=== PATIENT | male | born 1945 | race Two or more races ===

== ENCOUNTER 2016-07-06 19:23 | Inpatient (IN) | payer MEDICAID ==
[~2016-07-06] VITALS: Ht 167.6 cm; Wt 69.4 kg
[~2016-07-06 19:23] MED LIST: AMOXICILLIN500 MG ORAL; NORCO 5-325 TA1 EACH ORAL; PEPCID40 MG PO
[2016-07-06 20:52] VITALS: BP 148/80
[2016-07-06] MEDS ORDERED: Meclizine 25mg tab ORAL PRN (21:00)
[2016-07-06] MEDS ORDERED: LORazepam 0.5mg tab ORAL ONE (21:00)
--- NOTE | 2016-07-06 21:26 | Emergency Room Report ---
History of Present Illness General Chief Complaint: Dizziness Source: Patient Present Illness HPI 70 YO M with 4 days of dizziness, worse with moving head up/down, getting up from bed. Denies assoc chest pain, SOB, palpitations, fever/chills, cough. Has HTN, HLD. On daily ASA. Denies history of CVA or ACS. No assoc tinnitus, headache, neck pain/stiffness. Allergies: Coded Allergies: No Known Allergies (Unverified , 11/16/13) Patient History Past Medical History: HTN, other - HLD Past Surgical History: none Pertinent Family History: none Social History: Denies: alcohol use, drug use, smoking Immunizations: UTD Reviewed Nursing Documentation: PMH: Agreed, PSxH: Agreed Nursing Documentation-PMH Hx Hypertension: Yes Review of Systems All Other Systems: negative except mentioned in HPI Physical Exam Vital Signs Date Time Temp Pulse Resp B/P Pulse Ox O2 Delivery O2 Flow Rate FiO2 07/06/16 20:32 97.9 51 17 151/80 99 Room Air Sp02 EP Interpretation: reviewed, normal General Appearance: normal inspection, well appearing, no apparent distress, alert, non-toxic Head: normocephalic, atraumatic Eyes: bilateral eye EOMI, bilateral eye PERRL ENT: normal ENT inspection, hearing grossly normal, normal voice Neck: normal inspection, full range of motion, supple, no bony tend Respiratory: normal inspection, lungs clear, normal breath sounds, no respiratory distress, no retraction, no wheezing Cardiovascular #1: regular rate, rhythm, no edema Gastrointestinal: normal inspection, normal bowel sounds, non tender, soft, no guarding, no hernia Genitourinary: no CVA tenderness Musculoskeletal: normal inspection, back normal, normal range of motion, Jeanine' s Sign negative Neurologic: normal inspection, alert, oriented x3, responsive, 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 I attest that this information is true, accurate and complete to the best of my knowledge. I understand that any falsification, omission, or concealment of material fact may subject me to administrative, civil, or criminal liability. This patient warrants hospital admission for extreme of age and has a condition that cannot be treated as outpatient. Diagnostic Impression: Primary Impression: Dizziness Additional Impression: Bradycardia ER Course 70 YO M with dizziness for 4 days. VS notable for bradycardia. Afebrile. ECG shows sinus yasmine with RBBB. DDx includes BPPV however negative denny hallpike, symptoms not reproducible on exam. No cerebellar signs. No focal neuro deficits. PLAN Labs, troponin, admission EKG Diagnostic Results Rate: bradycardiac Rhythm: NSR, other - RBBB ST Segments: no acute changes ASA given to the pt in ED: No Rhythm Strip Diag. Results EP Interpretation: yes Rate: 47 Rhythm: NSR, no PVC's, no ectopy Chest X-Ray Diagnostic Results EP Interpretation: Yes Findings: no consolidation, no effusion, no pneumothorax, no acute cardiopulmonary disease Number of Views: 1 Reevaluation Time: 22:35 Last Vital Signs Date Time Temp Pulse Resp B/P Pulse Ox O2 Delivery O2 Flow Rate FiO2 07/06/16 20:52 97.9 88 17 148/80 99 Room Air Status: improved Reevaluation Impression Labs: Normal H&H. No leuks. Troponin 0. ECG sinus yasmine CXR normal Mild improvement with meclizine and lorazapem PO CT head pending Endorsed to Dr Mills at 1030pm for tele admission Disposition: ADMITTED INPATIENT Condition: Serious GARETT ESPARZA M.D. Jul 06, 2016 21:26
[2016-07-06 21:35] LABS: BASOPHILS % (AUTO) 3.1 % (0.0-2.0); EOSINOPHILS % (AUTO) 5.2 % (0.0-3.0); LYMPHOCYTES % (AUTO) 27.3 % (20.0-45.0); MEAN CORPUSCULAR HEMOGLOBIN 33.1 PG (27.0-31.0); MEAN CORPUSCULAR HGB CONC 34.6 G/DL (32.0-36.0); MEAN CORPUSCULAR VOLUME 96 FL (80-99); MEAN PLATELET VOLUME 6.7 FL (6.5-10.1); MONOCYTES % (AUTO) 8.3 % (1.0-10.0); NEUTROPHILS % (AUTO) 56.1 % (45.0-75.0); PLATELET COUNT 232 K/UL (150-450); RED BLOOD COUNT 4.14 M/UL (4.70-6.10); WHITE BLOOD COUNT 6.6 K/UL (4.8-10.8)
[2016-07-06] MEDS ORDERED: ASPIR 8181 MG ORAL (21:45)
[2016-07-06] MEDS ORDERED: GEMFIBROZIL600 MG ORAL (21:45)
[2016-07-06] MEDS ORDERED: ALLOPURINOL300 M1 ORAL (21:45)
[2016-07-06] MEDS ORDERED: AMLODIPINE BESY10 MG ORAL (21:45)
[2016-07-06 21:52] LABS: ALANINE AMINOTRANSFERASE 15 U/L (3-41); ALBUMIN/GLOBULIN RATIO 1.2 (1.0-2.7); ANION GAP 12 (5-15); ASPARTATE AMINO TRANSFERASE 19 U/L (5-40); CALCIUM 9.5 mg/dL (8.6-10.2); CARBON DIOXIDE 24 mEQ/L (20-30); CHLORIDE 104 mEQ/L (98-107); GLOMERULAR FILTRATION RATE > 60 mL/min (>60); HEMOLYSIS 8; POTASSIUM 4.1 mEQ/L (3.4-4.9); SODIUM 140 mEQ/L (135-145)
[2016-07-06 22:08] LABS: CKMB 3.8 ng/mL (< 6.7); TROPONIN I < 0.30 ng/mL (<=0.30)
[2016-07-06] MEDS ORDERED: Miralax 17gm pkt ORAL PRN (23:30)
[2016-07-06] MEDS ORDERED: Mylanta II UD 30ml ORAL PRN (23:30)
[2016-07-06] MEDS ORDERED: Morphine Sulfate 2mg/ml Inj IVP PRN (23:30)
[2016-07-06] MEDS ORDERED: Zolpidem 5mg tab ORAL PRN (23:30)
[2016-07-06] MEDS ORDERED: LORazepam Inj 2mg/ml 1ml IV PRN (23:30)
[2016-07-06 23:32] VITALS: BP 117/72
[2016-07-07] VITALS (7 sets, daily range): BP systolic 108–136; BP diastolic 66–74
[2016-07-07] MEDS ORDERED: Cefepime HCl 1 GM in D5W 55 ML IV SCH ×2 (03:00→13:00)
[2016-07-07] MEDS ORDERED: Cefepime 1gm vial ONE (03:19)
[2016-07-07] MEDS ORDERED: Vancomycin 1gm inj IVPB ONE (03:19)
[2016-07-07] MEDS ORDERED: Vancomycin 1gm in D5W 275ml IVPB SCH (04:00)
[2016-07-07 06:51] LABS: BASOPHILS % (AUTO) 2.1 % (0.0-2.0); EOSINOPHILS % (AUTO) 4.9 % (0.0-3.0); LYMPHOCYTES % (AUTO) 27.2 % (20.0-45.0); MEAN CORPUSCULAR HEMOGLOBIN 32.8 PG (27.0-31.0); MEAN CORPUSCULAR HGB CONC 35.7 G/DL (32.0-36.0); MEAN CORPUSCULAR VOLUME 92 FL (80-99); MEAN PLATELET VOLUME 7.6 FL (6.5-10.1); MONOCYTES % (AUTO) 8.4 % (1.0-10.0); NEUTROPHILS % (AUTO) 57.3 % (45.0-75.0); PLATELET COUNT 228 K/UL (150-450); RED BLOOD COUNT 4.37 M/UL (4.70-6.10); RED CELL DISTRIBUTION WIDTH 12.1 % (11.6-14.8); WHITE BLOOD COUNT 6.2 K/UL (4.8-10.8)
[2016-07-07] MEDS ORDERED: Heparin 5000 units/ml inj SUBQ SCH (09:00)
--- NOTE | 2016-07-07 10:09 | Diagnostic Imaging Report ---
Indication: Dizziness, vertigo Technique: Continuous helical CT scanning of the head was performed without intravenous contrast material. Axial and coronal 5 mm sections were generated. Radiation dose was minimized using automated exposure control Dose: Total Dose Length Product - DLP [address] Dose Index - CTDIvol(s) 70.38 mGy. Comparison: None Findings: The ventricular system is normal in size and configuration for age. There is no shift of midline structures. No abnormal extra-axial fluid collections are noted. There is no evidence of intracerebral bleeding. No other abnormal high or low density areas are noted within the brain. Intact calvarium. Visualized orbits and sinuses are unremarkable Impression: Normal CT scan of the head without contrast material. This agrees with the preliminary interpretation provided overnight by [facility]. The CT scanner at [facility] is accredited by the [employer] and the scans are performed using protocols designed to limit radiation exposure to as low as reasonably achievable to attain images of sufficient resolution adequate for diagnostic evaluation. Noncontrast
--- NOTE | 2016-07-07 13:38 | Diagnostic Imaging Report ---
Indication: PAIN Technique: One view of the chest Comparison: 03/08/2015 Findings: Lungs and pleural spaces are clear. Heart size is normal. No significant change Impression: No acute process
[2016-07-07 13:40] LABS: CHOLESTEROL/HDL RATIO 4.5 (3.3-4.4)
[2016-07-07 13:52] LABS: THYROID STIMULATING HORMONE 5.34 uIU/mL (0.300-4.500)
--- NOTE | 2016-07-07 14:16 | Cardiology Report ---
APPROVED REPORT EKG Measurement Heart [id number] Sinus bradycardia Right bundle branch block Abnormal ECG
[2016-07-07] MEDS ORDERED: Vancomycin 750mg/D5W 275ml IVPB SCH ×2 (16:00)
--- NOTE | 2016-07-07 17:01 | General Progress Note ---
Progress Note Progress Note ENT Note dictated-pt improved on meds. Does not appear to be related to ENT issues, such as inner ear infection GARETH RATLIFF Jul 07, 2016 17:01
--- NOTE | 2016-07-07 17:20 | Cardiac Electrophysiology PN ---
Subjective Subjective [id number]. Symptomatic bradycardia off GASCA or AVN marc. Transfer to [facility]. Objective Last 24 Hour Vital Signs Date Time Temp Pulse Resp B/P Pulse Ox O2 Delivery O2 Flow Rate FiO2 07/07/16 12:57 97.9 49 19 114/66 99 Room Air 07/07/16 08:52 97.7 51 20 126/72 99 Room Air 07/07/16 04:00 97.5 52 16 136/73 100 Room Air 07/07/16 02:43 97.8 54 18 110/72 99 Room Air 07/07/16 02:42 97.8 54 18 110/72 99 Room Air 07/07/16 01:25 97.8 51 18 108/70 99 Room Air 07/06/16 23:32 97.8 54 18 117/72 99 Room Air 07/06/16 20:52 97.9 58 17 148/80 99 Room Air 07/06/16 20:32 97.9 51 17 151/80 99 Room Air Intake and Output 07/06/16 07/07/16 19:00 07:00 Intake Total 330.000 ml Output Total 500 ml Balance -170.000 ml IV Total 330.000 ml Output Urine Total 500 ml Laboratory Tests Test 07/06/16 21:00 07/07/16 05:05 White Blood Count 6.6 K/UL (4.8-10.8) 6.2 K/UL (4.8-10.8) Red Blood Count 4.14 M/UL (4.70-6.10) L 4.37 M/UL (4.70-6.10) L Hemoglobin 13.7 G/DL (14.2-18.0) L 14.3 G/DL (14.2-18.0) Hematocrit 39.6 % (42.0-52.0) L 40.2 % (42.0-52.0) L Mean Corpuscular Volume 96 FL (80-99) 92 FL (80-99) Mean Corpuscular Hemoglobin 33.1 PG (27.0-31.0) H 32.8 PG (27.0-31.0) H Mean Corpuscular Hemoglobin Concent 34.6 G/DL (32.0-36.0) 35.7 G/DL (32.0-36.0) Red Cell Distribution Width 12.0 % (11.6-14.8) 12.1 % (11.6-14.8) Platelet Count 232 K/UL (150-450) 228 K/UL (150-450) Mean Platelet Volume 6.7 FL (6.5-10.1) 7.6 FL (6.5-10.1) Neutrophils (%) (Auto) 56.1 % (45.0-75.0) 57.3 % (45.0-75.0) Lymphocytes (%) (Auto) 27.3 % (20.0-45.0) 27.2 % (20.0-45.0) Monocytes (%) (Auto) 8.3 % (1.0-10.0) 8.4 % (1.0-10.0) Eosinophils (%) (Auto) 5.2 % (0.0-3.0) H 4.9 % (0.0-3.0) H Basophils (%) (Auto) 3.1 % (0.0-2.0) H 2.1 % (0.0-2.0) H Sodium Level 140 mEQ/L (135-145) Potassium Level 4.1 mEQ/L (3.4-4.9) Chloride Level 104 mEQ/L (98-107) Carbon Dioxide Level 24 mEQ/L (20-30) Anion Gap 12 (5-15) Blood Urea Nitrogen 18 mg/dL (7-23) Creatinine 1.0 mg/dL (0.7-1.2) Estimat Glomerular Filtration Rate > 60 mL/min (>60) Glucose Level 99 mg/dL (74-106) Calcium Level 9.5 mg/dL (8.6-10.2) Total Bilirubin 0.2 mg/dL (0.0-1.2) Aspartate Amino Transf (AST/SGOT) 19 U/L (5-40) Alanine Aminotransferase (ALT/SGPT) 15 U/L (3-41) Alkaline Phosphatase 92 U/L (40-129) Total Creatine Kinase 89 U/L (38-174) Creatine Kinase MB 3.8 ng/mL (< 6.7) Creatine Kinase MB Relative Index 4.2 Troponin I < 0.30 ng/mL (<=0.30) Total Protein 7.0 g/dL (6.6-8.7) Albumin 3.9 g/dL (3.5-5.2) Globulin 3.1 g/dL Albumin/Globulin Ratio 1.2 (1.0-2.7) Hemoglobin A1c 5.0 % (< 6.0) Triglycerides Level 132 mg/dL (< 150) Cholesterol Level 153 mg/dL (< 200) LDL Cholesterol 93 mg/dL (60-99) HDL Cholesterol 34 mg/dL (> 60) Cholesterol/HDL Ratio 4.5 (3.3-4.4) H Thyroid Stimulating Hormone (TSH) 5.340 uIU/mL (0.300-4.500) TREY FINCH Jul 07, 2016 17:20
--- NOTE | 2016-07-07 20:33 | Consultation ---
Consult Note Consult Note NEUROLOGY CONSULTATION: Full note dictated #[id number] 70 y/o, RH, HM with PH of HTN, dyslipidemia, and episodic vertigo off and on for the last 6 months. On 07/02/2016 started to have episodes of vertigo whenever he changed his position from lying down to sitting up or if he started to walk. At first the episodes would last for minutes at a time but today they have become less frequent and lest severe and only last for a few seconds. ON EXAM: Pulse 64/minute at rest. Normal neurologic examination except for globally diminished reflexes. Hallpike maneuver negative. However when made to sit up after the maneuver he had vertigo with few beats of pendular nystagmus which could not be reproduced. 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 Unclear if bradycardia is contributing to it. REC: W/U for other treatable causes of vertigo. Roger Cunha M.D., M.S.P.Jessica. ROGER CUNHA Jul 07, 2016 20:33
[2016-07-07] MEDS ORDERED: Mylanta II UD 30ml ORAL PRN (22:00)
[2016-07-07] MEDS ORDERED: Morphine Sulfate 2mg/ml Inj IVP PRN (22:00)
[2016-07-07] MEDS ORDERED: Miralax 17gm pkt ORAL PRN (22:00)
[2016-07-07] MEDS ORDERED: LORazepam Inj 2mg/ml 1ml IV PRN (22:00)
[2016-07-07] MEDS ORDERED: Zolpidem 5mg tab ORAL PRN (22:00)
[2016-07-07] MEDS: Cefepime HCl 1 GM in D5W 55 ML IV SCH (22:02)
[2016-07-07] MEDS: Heparin 5000 units/ml inj SUBQ SCH (22:04)
[2016-07-07 22:34] LABS: FREE T3 2.9 pg/mL (2.3-4.2)
--- NOTE | 2016-07-08 00:17 | Consultation ---
DATE OF CONSULTATION: 07/07/2016 REFERRING PHYSICIAN: Neeta Alex M.D. REASON FOR CONSULTATION: Dizziness and bradycardia. HISTORY OF PRESENT ILLNESS: The patient is a 70-year-old gentleman with history of hypertension and hyperlipidemia who was brought to the emergency room for rule out sudden dizziness. In the emergency room, the patient's EKG showed sinus bradycardia rate of 47 and complete right bundle-branch block. The patient did not have any chest pain or syncope. Denies any prior CVA. The patient was evaluated by . The patient was admitted and Cardiology consultation was obtained for further evaluation and management. REVIEW OF SYSTEM: His review of systems was negative other than what was mentioned in the history of present illness. PAST MEDICAL HISTORY: Hypertension and hyperlipidemia. FAMILY HISTORY: Noncontributory. SOCIAL HISTORY: He lives at home. Son and daughter at the bedside. Denies smoking or drinking alcohol. PHYSICAL EXAMINATION: VITAL SIGNS: Blood pressure is 114/60, pulse 49, respirations 18, and he is afebrile. NECK: Shows no JVD or carotid bruits. LUNGS: Clear. CARDIOVASCULAR: Bradycardiac S1 and S2 with no gallop or murmur. ABDOMEN: Soft. EXTREMITIES: No pitting edema. LABORATORY AND DIAGNOSTIC DATA: His 12-lead EKG shows sinus bradycardic at 47 with complete right bundle-branch block. White blood cell count 6.2, hemoglobin 14.2, hematocrit 40, and platelet count 228,000. Sodium 140, potassium 4.1, BUN of 13, creatinine 1, glucose of 99. Troponin negative. Triglyceride 132. TSH is 5.34. ASSESSMENT AND PLAN: 1. Bradycardia. The patient is not on any sinus eren or AV eren blocking agent. We will transfer back to telemetry. The patient's TSH is mildly elevated. We will check a T4 and repeat TSH again. We will get an echocardiogram for further evaluation and management. 2. Hypertension, the patient placed back on amlodipine. 3. Dyslipidemia on Lipitor. Thank very much, Dr. Alex, for allowing me to participate in the care of this patient. Please do not hesitate to contact me for any questions regarding my evaluation. Edgardo Morfin M.D. DR: Tate JOB#: [id number] CC:
--- NOTE | 2016-07-08 00:27 | Consultation ---
DATE OF CONSULTATION: 07/07/2016 HEAD AND NECK SURGERY/ENT CONSULTATION CONSULTING PHYSICIAN: Pepe Bellamy M.D. REQUESTING PHYSICIAN: Neeta Alex M.D. INDICATION FOR CONSULTATION/HISTORY OF PRESENT ILLNESS: The patient is a 70-year-old male, who was admitted yesterday with severe dizziness and bradycardia. I have saw him today for the first time. He is doing much better per his daughter and son who were present in the room. They speak Lao. He does not. MEDICATIONS: Vancomycin, ceftazidime, heparin, morphine, acetaminophen, lorazepam, aldosterone, MiraLax, dextrose, Ambien, and meclizine, which was discontinued, last given at 9 o'clock last night. He has not had any since then. He did have an EKG showing bradycardia. PHYSICAL EXAMINATION: GENERAL: The patient is a 70-year-old gentleman, 167.64 cm, 69.4 kg, and BMI 24.7 kg/m2. HEENT: Head is normocephalic. Eyes, PERRLA and EOMI. Lips, tongue, pharynx, and neck are normal. He has no teeth. Ears, positive light reflex and normal canals. ASSESSMENT: He had dizziness. I am not sure this is due to his inner ear. He does not seem to have a middle ear infection. Although, he has been treated with antibiotics, which may have knocked it out. Although, this was very quick for that to happen in less than 24 hours. He does have bradycardia that seems to be addressed and he does seem to be hydrated, which seems to be helping. PLAN: He has been doing better according to his family. He is getting up and walking around. Thank you very much for asking my opinion in care and treatment of this patient. Pepe Bellamy M.D. DR: PAPA JOB#: [id number] CC:
[2016-07-08 00:30] VITALS: BP 107/74
[2016-07-08] MEDS: Vancomycin 750 MG in D5W 275 ML IVPB SCH ×2 (04:16→16:40)
[2016-07-08 04:25] VITALS: BP 120/72
--- NOTE | 2016-07-08 05:57 | Consultation ---
DATE OF CONSULTATION: 07/07/2016 NEUROLOGY CONSULTATION REQUESTING PHYSICIAN: Neeta Alex M.D. HISTORY: Mr. Michael Ford is a 70-year-old, right-handed, gentleman, who does have a past history of hypertension, dyslipidemia, gout, and episodic vertigo off and on for the last six months or so. He was functioning relatively well until 07/02/2016 when he started to have episodes of vertigo whenever he changed his position from lying down to sitting up or he started to stand or walk. These problems became significantly more bothersome and as a result of that, he was hospitalized on 07/06/2016. When he was brought into the hospital, he was noted to be significantly bradycardic. He was given intravenous fluids, antibiotics, and benzodiazepines. He is feeling much better today. At this point in time, he feels relatively well and is free of vertigo. He denies any other neurological symptoms like weakness on one side or the other, numbness on one side or the other, problems with speech, problems with language, problems with vision, or any other neurological symptoms. PAST MEDICAL HISTORY: Significant for high blood pressure, dyslipidemia, gout, and episodic vertigo for the last six months or so. FAMILY HISTORY: Significant for high blood pressure in other family members and diabetes mellitus in mother. PERSONAL HISTORY: Home: He lives with his and two children. 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 Habits: He denies the use of alcohol, tobacco, or illicit drugs. PHYSICAL EXAMINATION: GENERAL: He is a well-developed, well-nourished, pleasant gentleman, lying in bed, in no acute distress. VITAL SIGNS: Pulse is 64 per minute and regular taken by me, blood pressure 125/74 mmHg, respirations 20 per minute, and temperature 97.8 degrees Fahrenheit. HEAD: Normocephalic and atraumatic. EENT: Examination benign NECK: No neck rigidity was observed. NEUROLOGICAL EXAMINATION: MENTAL STATUS EXAMINATION: He was alert and awake. He was oriented to person, place, and time. He was able to recall 3/3 words immediately after 1 minute and after 3 minutes. He was able to remember presidents Trump through Ned. His mathematical skills were good. His visuospatial function was preserved. SPEECH: He had no dysarthria. LANGUAGE: He had no aphasia. CRANIAL NERVE EXAMINATION: II: The visual boogie were intact on confrontation testing. III, IV & : The external ocular movements were full and the pupils 3 mm in diameter, equal, round, regular, and reactive to light. V: He had normal facial sensations and the temporales, masseters, and pterygoids functioned normally. VII: He had normal facial expressions and no facial asymmetry. VIII: He was able to hear well bilaterally and had no nystagmus. IX: The palate moved symmetrically on phonation. X: He had no hoarseness of voice. XI: The sternocleidomastoids and trapezii functioned normally. XII: The tongue was in the midline without any fasciculations or atrophy. MOTOR SYSTEM: The tone was normal in all four extremities. Examination of muscle mass revealed no focal wasting. Examination of power revealed grade 5/5 power in all muscle groups tested. SENSORY EXAMINATION: He had intact sensation to pinprick, light touch, and graphesthesia. COORDINATION: He performed well on jelovq-lj-bxod and bzqs-hu-rqyc testing. On Romberg test, he swayed, but did not fall to one side or the other. REFLEXES: 1+ and bilaterally symmetrical at the biceps, triceps, brachioradialis, and knees. 0 at both ankles. The plantar responses were flexor bilaterally. STANCE: He stood up with support. GAIT: He walked relatively well with no ataxia. Hallpike maneuver: Negative. However, when he was made to sit up following the Hallpike maneuver, he felt dizziness for the few seconds. This was associated with a few beats of nystagmus. When he was made to perform the same maneuver again that is sitting up from a lying down position, he again complained of vertigo that lasted for brief period of time, but this was not associated with any nystagmus. DIAGNOSTIC IMPRESSION: 1. Mr. Michael Ford is a 70-year-old, right-handed, gentleman, who does have a past history of hypertension, dyslipidemia, episodic vertigo, and gout, who was hospitalized on 07/06/2016 for few day episode of vertigo whenever he changed position from lying down to sitting up or if he started to stand or walk. At this time, the vertigo has improved significantly. 2. On neurological examination, at this time, his pulse rate is 64 per minute at rest. The neurological examination is essentially benign except for globally diminished deep tendon reflexes. The Hallpike maneuver is negative. However, when he was made to sit up following the Hallpike maneuver, he had vertigo and a few beats of pendular nystagmus, which could not be reproduced. 3. The CT scan of the brain without contrast is benign. 4. Laboratory data obtained thus far revealed relatively normal CBC, relatively normal chemistry panel, and elevated TSH at 5.34. 5. The patient's history and neurological examination are most compatible with labyrinthine vertigo, which may be benign positional vertigo. It is unclear if the patient's bradycardia that was seen earlier is contributing to it. It is also unclear if the patient's calcium channel marc is causing the bradycardia or not. RECOMMENDATIONS: 1. Agree with management thus far. 2. Management of bradycardia as per Dr. Morfin. 3. The patient should be worked up thoroughly for other treatable causes of vertigo with an addition to the laboratory test already done, B12 level, folate level, vitamin D level, RPR, glycohemoglobin , Westergren sedimentation rate, T3 and T4 to workup the elevated TSH. 4. Depending on how the patient fares over the next day or so, further recommendations will be given . Thank you for entrusting me with the care of Mr. Ford. I shall follow him with you. Tyler Cunha M.D., M.S.P.H. DR: Maegan JOB#: [id number] [facility]
[2016-07-08 08:00] VITALS: BP 128/75
[2016-07-08 08:22] LABS: CHOLESTEROL/HDL RATIO 4.5 (3.3-4.4)
[2016-07-08 08:23] LABS: TROPONIN I < 0.30 ng/mL (<=0.30)
[2016-07-08 08:35] LABS: THYROID STIMULATING HORMONE 2.64 uIU/mL (0.300-4.500)
[2016-07-08] MEDS: Heparin 5000 units/ml inj SUBQ SCH ×2 (09:15→21:23)
[2016-07-08] MEDS: Cefepime HCl 1 GM in D5W 55 ML IV SCH ×2 (09:16→21:20)
[2016-07-08 12:00] VITALS: BP 122/74
--- NOTE | 2016-07-08 12:43 | Neurology Progress Note ---
Interim History Interim History Interim History Mr. Ford feels emily. He has had no vertigo today. He denies any new neurologic symptoms. He is eager to go home. Review of Systems Neuro Review of Systems Benign. Objective Physical Exam Last Vital Signs Date Time Temp Pulse Resp B/P Pulse Ox O2 Delivery O2 Flow Rate FiO2 07/08/16 08:00 58 07/08/16 08:00 96.9 17 128/75 97 Room Air Laboratory Tests Test 07/07/16 21:30 07/08/16 06:30 Erythrocyte Sedimentation Rate 21 MM/HR (0-20) H Total Protein (PEP) Pending Albumin (PEP) Pending Globulin (PEP) Pending Albumin/Globulin Ratio Pending Gvfoa-9-Widxgkphn Pending Sicec-2-Uakqwuotf Pending Beta Globulins Pending Beta Gamma Globulin Pending PEP Abnormal Protein Bands Pending Protein Electrophoresis Interpret Pending Vitamin B12 Level 174 pg/mL (211-946) L Vitamin D 25-Hydroxy Pending 25-Hydroxy Vitamin D2 Pending 25-Hydroxy Vitamin D3 Pending Folate Pending Free Triiodothyronine 2.9 pg/mL (2.3-4.2) Rapid Plasma Reagin Pending Troponin I < 0.30 ng/mL (<=0.30) Pro-B-Type Natriuretic Peptide 26 pg/mL (0-125) Triglycerides Level 130 mg/dL (< 150) Cholesterol Level 165 mg/dL (< 200) LDL Cholesterol 102 mg/dL (60-99) H HDL Cholesterol 37 mg/dL (> 60) Cholesterol/HDL Ratio 4.5 (3.3-4.4) H Thyroid Stimulating Hormone (TSH) 2.640 uIU/mL (0.300-4.500) Free Thyroxine 1.16 ng/dL (0.86-1.85) Neurologic Exam Objective PHYSICAL EXAMINATION: GENERAL: He is a well-developed, well-nourished, pleasant gentleman, lying in bed, in no acute distress. HEAD: Normocephalic and atraumatic. EENT: Examination benign NECK: No neck rigidity was observed. NEUROLOGICAL EXAMINATION: MENTAL STATUS EXAMINATION: He was alert and awake. He was oriented to person, place, and time. He was able to recall 3/3 words immediately after 1 minute and after 3 minutes. He was able to remember presidents Trump through Ned. His mathematical skills were good. His visuospatial function was preserved. SPEECH: He had no dysarthria. LANGUAGE: He had no aphasia. CRANIAL NERVE EXAMINATION: II: The visual boogie were intact on confrontation testing. III, IV & : The external ocular movements were full and the pupils 3 mm in diameter, equal, round, regular, and reactive to light. V: He had normal facial sensations and the temporales, masseters, and pterygoids functioned normally. VII: He had normal facial expressions and no facial asymmetry. VIII: He was able to hear well bilaterally and had no nystagmus. IX: The palate moved symmetrically on phonation. X: He had no hoarseness of voice. XI: The sternocleidomastoids and trapezii functioned normally. XII: The tongue was in the midline without any fasciculations or atrophy. MOTOR SYSTEM: The tone was normal in all four extremities. Examination of muscle mass revealed no focal wasting. Examination of power revealed grade 5/5 power in all muscle groups tested. SENSORY EXAMINATION: He had intact sensation to pinprick, light touch, and graphesthesia. COORDINATION: He performed well on sorqsd-ss-tggz and kdkd-af-wmlp testing. REFLEXES: 1+ and bilaterally symmetrical at the biceps, triceps, brachioradialis, and knees. 0 at both ankles. The plantar responses were flexor bilaterally. STANCE & GAIT: Were not tested as he was getting his echocardiogram. Impression/Recommendations Diagnostic Impression 1. Mr. Michael Ford is a 70-year-old, right-handed, gentleman, who does have a past history of hypertension, dyslipidemia, episodic vertigo, and gout, who was hospitalized on 07/06/2016 for few day episode of vertigo whenever he changed position from lying down to sitting up or if he started to stand or walk. 2. He feels much better today and has had no vertigo. 3. The neurological examination is essentially benign except for globally diminished deep tendon reflexes. 4. The CT scan of the brain without contrast is benign. 5. Laboratory data obtained thus far revealed relatively normal CBC, relatively normal chemistry panel, an elevated TSH at 5.34 with a normal T4 but a low B 12 level. 6. The patient's history and neurological examination are most compatible with labyrinthine vertigo, which may be benign positional vertigo. It is unclear if the patient's bradycardia that was seen earlier is contributing to it. Recommendations 1. Continue present management thus far. 2. Management of bradycardia as per Dr. Morfin. 3. Vitamin B 12 - 1000 mcg SC daily x 3 days and then monthly. 4. Keep active. Roger Martinez M.D., M.S.P.H. ROGER MARTINEZ Jul 08, 2016 12:43
[2016-07-08] MEDS: Vitamin B12 1000mcg/ml Inj SUBQ SCH (14:23)
[2016-07-08 16:00] VITALS: BP 134/77
--- NOTE | 2016-07-08 16:44 | General Progress Note ---
Assessment/Plan Problem List: (1) Dizziness ICD Codes: R42 - Dizziness and giddiness SNOMED: 475242964, 167350207 (2) Bradycardia ICD Codes: R00.1 - Bradycardia, unspecified SNOMED: 45228310, 017748938 Status: progressing Assessment/Plan transfered to [facility] for symptomatic bradycardia Subjective Allergies: Coded Allergies: No Known Allergies (Unverified , 11/16/13) Subjective dizzy Objective Last 24 Hour Vital Signs Date Time Temp Pulse Resp B/P Pulse Ox O2 Delivery O2 Flow Rate FiO2 07/08/16 16:00 98.0 61 20 134/77 99 Room Air 07/08/16 12:00 57 07/08/16 12:00 97.9 59 17 122/74 99 Room Air 07/08/16 08:00 58 07/08/16 08:00 96.9 52 17 128/75 97 Room Air 07/08/16 04:25 98.5 57 21 120/72 97 Room Air 07/08/16 04:00 58 07/08/16 00:30 98.5 59 20 107/74 98 Room Air 07/08/16 00:00 52 07/07/16 20:00 97.7 57 20 122/71 97 Room Air Intake and Output 07/07/16 07/08/16 19:00 07:00 Intake Total 930.000 ml Output Total 200 ml 600 ml Balance 730.000 ml -600 ml Intake Oral 600 ml IV Total 330.000 ml Output Urine Total 200 ml 600 ml # Voids 1 Laboratory Tests 07/07/16 21:30: Erythrocyte Sedimentation Rate 21H, Total Protein (PEP) [Pending], Albumin (PEP ) [Pending], Globulin (PEP) [Pending], Albumin/Globulin Ratio [Pending], Alpha-1 -Globulins [Pending], Dbvnx-4-Fwnlvolgq [Pending], Beta Globulins [Pending], Beta Gamma Globulin [Pending], PEP Abnormal Protein Bands [Pending], Protein Electrophoresis Interpret [Pending], Vitamin B12 Level 174L, Vitamin D 25- Hydroxy [Pending], 25-Hydroxy Vitamin D2 [Pending], 25-Hydroxy Vitamin D3 [ Pending], Folate [Pending], Free Triiodothyronine 2.9, Rapid Plasma Reagin [ Pending] 07/08/16 06:30: Troponin I < 0.30, Pro-B-Type Natriuretic Peptide 26, Triglycerides Level 130, Cholesterol Level 165, LDL Cholesterol 102H, HDL Cholesterol 37, Cholesterol/ HDL Ratio 4.5H, Thyroid Stimulating Hormone (TSH) 2.640, Free Thyroxine 1.16 Height (Feet): 5 Height (Inches): 6.00 Weight (Pounds): 153 EENT: PERRL/EOMI Neck: normal alignment Respiratory/Chest: lungs clear Abdomen: non tender Neeta Alex MD Jul 08, 2016 16:44
--- NOTE | 2016-07-08 17:14 | Cardiac Electrophysiology PN ---
Assessment/Plan Assessment/Plan 1. Bradycardia. Off any sinus erne or AV eren blocking agent. Transferred to telemetry. HR better now. The patient's TSH is mildly elevated. Echocardiogram showed EF 55%. 2. Hypertension, Off BP meds stable now. 3. Dyslipidemia 4. ? Empiric IV antibiotics. WBC normal and No fever DW RN Subjective Subjective Heart rate better. No long pauses. Comfortable. Objective Last 24 Hour Vital Signs Date Time Temp Pulse Resp B/P Pulse Ox O2 Delivery O2 Flow Rate FiO2 07/08/16 16:00 98.0 61 20 134/77 99 Room Air 07/08/16 12:00 57 07/08/16 12:00 97.9 59 17 122/74 99 Room Air 07/08/16 08:00 58 07/08/16 08:00 96.9 52 17 128/75 97 Room Air 07/08/16 04:25 98.5 57 21 120/72 97 Room Air 07/08/16 04:00 58 07/08/16 00:30 98.5 59 20 107/74 98 Room Air 07/08/16 00:00 52 07/07/16 20:00 97.7 57 20 122/71 97 Room Air Intake and Output 07/07/16 07/08/16 19:00 07:00 Intake Total 930.000 ml Output Total 200 ml 600 ml Balance 730.000 ml -600 ml Intake Oral 600 ml IV Total 330.000 ml Output Urine Total 200 ml 600 ml # Voids 1 Laboratory Tests Test 07/07/16 21:30 07/08/16 06:30 Erythrocyte Sedimentation Rate 21 MM/HR (0-20) H Total Protein (PEP) Pending Albumin (PEP) Pending Globulin (PEP) Pending Albumin/Globulin Ratio Pending Tthaw-6-Lkizlsldo Pending Oqhpn-7-Fflpdstcu Pending Beta Globulins Pending Beta Gamma Globulin Pending PEP Abnormal Protein Bands Pending Protein Electrophoresis Interpret Pending Vitamin B12 Level 174 pg/mL (211-946) L Vitamin D 25-Hydroxy Pending 25-Hydroxy Vitamin D2 Pending 25-Hydroxy Vitamin D3 Pending Folate Pending Free Triiodothyronine 2.9 pg/mL (2.3-4.2) Rapid Plasma Reagin Pending Troponin I < 0.30 ng/mL (<=0.30) Pro-B-Type Natriuretic Peptide 26 pg/mL (0-125) Triglycerides Level 130 mg/dL (< 150) Cholesterol Level 165 mg/dL (< 200) LDL Cholesterol 102 mg/dL (60-99) H HDL Cholesterol 37 mg/dL (> 60) Cholesterol/HDL Ratio 4.5 (3.3-4.4) H Thyroid Stimulating Hormone (TSH) 2.640 uIU/mL (0.300-4.500) Free Thyroxine 1.16 ng/dL (0.86-1.85) Objective NECK: Shows no JVD or carotid bruits. LUNGS: Clear. CARDIOVASCULAR: Regular S1 and S2 with no gallop or murmur. ABDOMEN: Soft. EXTREMITIES: No pitting edema. TREY FINCH Jul 08, 2016 17:14
[2016-07-08 20:00] VITALS: BP 130/75
[2016-07-08] MEDS ORDERED: NS 275ml ONE (20:50)
[2016-07-08] MEDS ORDERED: D5W 275ml ONE (20:50)
[2016-07-08] MEDS ORDERED: Tubing IV Secondary IV ONE (20:50)
[2016-07-09 00:40] VITALS: BP 124/77
[2016-07-09] MEDS: Vancomycin 750 MG in D5W 275 ML IVPB SCH (04:01)
[2016-07-09 04:23] VITALS: BP 107/72
[2016-07-09 08:00] VITALS: BP 129/74
[2016-07-09] MEDS: Vitamin B12 1000mcg/ml Inj SUBQ SCH (09:01)
[2016-07-09] MEDS: Cefepime HCl 1 GM in D5W 55 ML IV SCH (09:01)
[2016-07-09] MEDS: Heparin 5000 units/ml inj SUBQ SCH ×2 (09:03→21:31)
[2016-07-09 10:21] LABS: A/G RATIO 1.3 (0.7-1.7); ABNORMAL PROTEIN BAND 1 Not Observed g/dL (Not Observed); ALBUMIN 3.5 g/dL (2.9-4.4); ALPHA-1 GLOBULIN 0.2 g/dL (0.0-0.4); ALPHA-2 GLOBULIN 0.6 g/dL (0.4-1.0); BETA GLOBULIN 1.1 g/dL (0.7-1.3); GAMMA GLOBULIN 0.9 g/dL (0.4-1.8); GLOBULIN, TOTAL 2.8 g/dL (2.2-3.9); TOTAL PROTEIN 6.3 g/dL (6.0-8.5)
[2016-07-09 12:00] VITALS: BP 119/68
--- NOTE | 2016-07-09 13:23 | General Progress Note ---
Assessment/Plan Problem List: (1) Dizziness ICD Codes: R42 - Dizziness and giddiness SNOMED: 248074538, [id number] (2) Bradycardia ICD Codes: R00.1 - Bradycardia, unspecified SNOMED: 68072925, [id number] Status: progressing Assessment/Plan transfered to [facility] for symptomatic bradycardia will discuss w dr may parker plan of care Subjective ROS Limited/Unobtainable: Yes Constitutional: Reports: no symptoms Allergies: Coded Allergies: No Known Allergies (Unverified , 11/16/13) Subjective dizzy Objective Last 24 Hour Vital Signs Date Time Temp Pulse Resp B/P Pulse Ox O2 Delivery O2 Flow Rate FiO2 07/09/16 12:00 65 07/09/16 12:00 97.7 55 119/68 Room Air 07/09/16 08:00 98.1 54 17 129/74 96 Room Air 07/09/16 08:00 63 07/09/16 06:09 62 07/09/16 04:23 98.4 68 20 107/72 98 Room Air 07/09/16 00:40 98.6 58 21 124/77 99 Room Air 07/09/16 00:00 54 07/08/16 20:00 62 07/08/16 20:00 97.6 58 20 130/75 96 Room Air 07/08/16 16:00 65 07/08/16 16:00 98.0 61 20 134/77 99 Room Air Intake and Output 07/08/16 07/09/16 19:00 07:00 Intake Total 955 ml 630.0 ml Output Total 1550 ml 600 ml Balance -595 ml 30.0 ml Intake Oral 680 ml 300 ml IV Total 275 ml 330.0 ml Output Urine Total 1550 ml 600 ml Height (Feet): 5 Height (Inches): 6.00 Weight (Pounds): 153 EENT: PERRL/EOMI Neck: supple Cardiovascular: bradycardia Respiratory/Chest: lungs clear Neeta Alex MD Jul 09, 2016 13:23
--- NOTE | 2016-07-09 13:27 | History and Physical Report ---
DATE OF ADMISSION: 07/06/2016 REASON FOR ADMISSION: Dizziness and bradycardia. HISTORY OF PRESENT ILLNESS: I obtained the history by a transfer nurse. The patient is complaining of vertigo and dizziness x1 day. The patient had a similar episode five months ago and was given some medication that helped these symptoms. The patient denies headaches. Denies double vision. Denies syncopal episode. Denies fever or chills. Denies cough. PAST MEDICAL HISTORY: History of vertigo and hypertension, history of gout, and history of GERD and hyperlipidemia. PAST SURGICAL HISTORY: Prostate surgery. MEDICATIONS: Allopurinol, amlodipine, aspirin, famotidine, and gemfibrozil. ALLERGIES: No known allergies. SOCIAL HISTORY: History of smoking and alcohol abuse, which was six years ago. No history of drug abuse. FAMILY HISTORY: Noncontributory. REVIEW OF SYSTEMS: HEENT: Denies headache. Respiratory: Denies shortness of breath. Denies cough. Cardiovascular: Denies chest pain. Gastrointestinal: Denies nausea, vomiting, or diarrhea. Denies abdominal pain. Extremities: Denies pain. Central Nervous System: Denies change in vision or speech pattern. Does have vertigo and dizziness. PHYSICAL EXAMINATION: VITAL SIGNS: Temperature 97.8 degrees, pulse is 54, and blood pressure 110/72. HEENT: PERRLA. NECK: Supple. No lymphadenopathy. CHEST: Clear to auscultation. GASTROINTESTINAL: Soft and nondistended. No organomegaly. EXTREMITIES: No edema. Moving all four extremities. NEUROLOGIC: Sensory intact to light touch. Reflexes equal on both sides. Cranial nerves II through XII intact. LABORATORY AND DIAGNOSTIC DATA: CT head apparently did not show any acute findings. WBC of 6.6, hemoglobin 13.7, and platelets 232,000. Sodium 140, potassium 4.1, BUN of 18, creatinine and glucose of 99. ASSESSMENT AND PLAN: 1. Vertigo. 2. Hypertension. I have asked Dr. Macedo, Dr. Thayer, Dr. Cunha, and Dr. Lopez to see the patient for the above-mentioned diagnoses and treatment. Neeta Alex M.D. DR: NICK JOB#: [id number] CC:
--- NOTE | 2016-07-09 14:11 | Neurology Progress Note ---
Interim History Interim History Interim History Mr. Ford feels very well. He feels more energetic. He has had no further vertigo. He denies any new neurologic symptoms. He specifically denies any weakness, numbness, visual problems, speech problems or any other neurologic symptoms. He is eager to go home. Review of Systems Neuro Review of Systems Benign. Objective Physical Exam Last Vital Signs Date Time Temp Pulse Resp B/P Pulse Ox O2 Delivery O2 Flow Rate FiO2 07/09/16 12:00 65 07/09/16 12:00 97.7 119/68 Room Air 07/09/16 08:00 17 96 Neurologic Exam Objective PHYSICAL EXAMINATION: GENERAL: He is a well-developed, well-nourished, pleasant gentleman, lying in bed, in no acute distress. HEAD: Normocephalic and atraumatic. EENT: Examination benign NECK: No neck rigidity was observed. NEUROLOGICAL EXAMINATION: MENTAL STATUS EXAMINATION: He was alert and awake. He was oriented to person, place, and time. He was able to recall 3/3 words immediately after 1 minute and after 3 minutes. He was able to remember presidents Trump through Ned. His mathematical skills were good. His visuospatial function was preserved. SPEECH: He had no dysarthria. LANGUAGE: He had no aphasia. CRANIAL NERVE EXAMINATION: II: The visual boogie were intact on confrontation testing. III, IV & : The external ocular movements were full and the pupils 3 mm in diameter, equal, round, regular, and reactive to light. V: He had normal facial sensations and the temporales, masseters, and pterygoids functioned normally. VII: He had normal facial expressions and no facial asymmetry. VIII: He was able to hear well bilaterally and had no nystagmus. IX: The palate moved symmetrically on phonation. X: He had no hoarseness of voice. XI: The sternocleidomastoids and trapezii functioned normally. XII: The tongue was in the midline without any fasciculations or atrophy. MOTOR SYSTEM: The tone was normal in all four extremities. Examination of muscle mass revealed no focal wasting. Examination of power revealed grade 5/5 power in all muscle groups tested. SENSORY EXAMINATION: He had intact sensation to pinprick, light touch, and graphesthesia. COORDINATION: He performed well on azvnsk-df-wqng and iohc-wu-zqrn testing. REFLEXES: 1+ and bilaterally symmetrical at the biceps, triceps, brachioradialis, and knees. 0 at both ankles. The plantar responses were flexor bilaterally. STANCE & GAIT: Steady and independent. Impression/Recommendations Diagnostic Impression 1. Mr. Michael Ford is a 70-year-old, right-handed, gentleman, who does have a past history of hypertension, dyslipidemia, episodic vertigo, and gout, who was hospitalized on 07/06/2016 for few day episode of vertigo whenever he changed position from lying down to sitting up or if he started to stand or walk. 2. He feels much better today and has had no vertigo. He is also more energetic. 3. The neurological examination is essentially benign except for globally diminished deep tendon reflexes. 4. The CT scan of the brain without contrast is benign. 5. Laboratory data obtained thus far revealed a relatively normal CBC, relatively normal chemistry panel, an elevated TSH at 5.34 with a normal T4 but a low B 12 level. 6. The patient's history and neurological examination are most compatible with labyrinthine vertigo, which may be benign positional vertigo. The vertigo has now resolved. 7. It is unclear if the patient's bradycardia that was seen earlier was contributing to to the vertigo or not. 8. His B 12 deficiency has been treated ans he feels more energetic today. Recommendations 1. Continue present management. 2. Management of bradycardia as per Dr. Morfin. 3. Vitamin B 12 - 1000 mcg SC daily x 3 days and then monthly. 4. Increase activity as tolerated. Tyler Martinez M.D., M.S.P.H. TYLER MARTINEZ Jul 09, 2016 14:11
--- NOTE | 2016-07-09 15:01 | Cardiac Electrophysiology PN ---
Assessment/Plan Assessment/Plan 1. Bradycardia.Resolved. Keep off any sinus eren or AV eren blocking agent. The patient's TSH is mildly elevated. Echocardiogram showed EF 55%. 2. Hypertension, Off BP meds stable now. 3. Dyslipidemia 4. ? Empiric IV antibiotics. WBC normal and No fever. ? ID consult DW Dr Alex Subjective Subjective Heart rate improved with no further pauses. Comfortable, son and daughter at bedside. Objective Last 24 Hour Vital Signs Date Time Temp Pulse Resp B/P Pulse Ox O2 Delivery O2 Flow Rate FiO2 07/09/16 12:00 65 07/09/16 12:00 97.7 55 119/68 Room Air 07/09/16 08:00 98.1 54 17 129/74 96 Room Air 07/09/16 08:00 63 07/09/16 06:09 62 07/09/16 04:23 98.4 68 20 107/72 98 Room Air 07/09/16 00:40 98.6 58 21 124/77 99 Room Air 07/09/16 00:00 54 07/08/16 20:00 62 07/08/16 20:00 97.6 58 20 130/75 96 Room Air 07/08/16 16:00 65 07/08/16 16:00 98.0 61 20 134/77 99 Room Air Intake and Output 07/08/16 07/09/16 19:00 07:00 Intake Total 955 ml 630.0 ml Output Total 1550 ml 600 ml Balance -595 ml 30.0 ml Intake Oral 680 ml 300 ml IV Total 275 ml 330.0 ml Output Urine Total 1550 ml 600 ml Objective NECK: Shows no JVD or carotid bruits. LUNGS: Clear. CARDIOVASCULAR: Regular S1 and S2 with no gallop or murmur. ABDOMEN: Soft. EXTREMITIES: No pitting edema. TREY FINCH Jul 09, 2016 15:01
[2016-07-09 16:00] VITALS: BP 108/77
--- NOTE | 2016-07-09 16:27 | Infectious Diseases Prog Note ---
Assessment/Plan Problems: (1) Dizziness Assessment & Plan: suspect BPV, VS bradycardia related , cardiology and neurology are following , recommend MRI of the brain if recurrent, and Holter monitor as an outpatient (2) Bradycardia Assessment & Plan: off eren blocking agents, cardiology is following . Assessment/Plan no evidence of sepsis or infection based on his labs and symptoms. no need for antibiotics at this point will D/C antibiotics and observe . further recommendations as per cardiology and neurology Subjective Allergies: Coded Allergies: No Known Allergies (Unverified , 11/16/13) Objective Vital Signs Last 24 Hour Vital Signs Date Time Temp Pulse Resp B/P Pulse Ox O2 Delivery O2 Flow Rate FiO2 07/09/16 16:00 97.7 60 20 108/77 98 Room Air 07/09/16 12:00 65 07/09/16 12:00 97.7 55 119/68 Room Air 07/09/16 08:00 98.1 54 17 129/74 96 Room Air 07/09/16 08:00 63 07/09/16 06:09 62 07/09/16 04:23 98.4 68 20 107/72 98 Room Air 07/09/16 00:40 98.6 58 21 124/77 99 Room Air 07/09/16 00:00 54 07/08/16 20:00 62 07/08/16 20:00 97.6 58 20 130/75 96 Room Air Height (Feet): 5 Height (Inches): 6.00 Weight (Pounds): 153 Laboratory Tests Test 07/09/16 15:20 Vancomycin Level Trough 14.6 ug/mL (5.0-12.0) H Current Medications Medications (Trade) Dose Ordered Sig/Hill Route PRN Reason Start Time Stop Time Status Last Admin Dose Admin Acetaminophen (Tylenol) 650 mg Q4H PRN ORAL fever 07/07/16 22:00 08/06/16 21:59 Al Hydroxide/Mg Hydroxide (Mylanta II) 30 ml Q6H PRN ORAL dyspepsia 07/07/16 22:00 08/06/16 21:59 Cefepime HCl 1 gm/ Dextrose 55 ml @ 110 mls/hr Q12HR IV 07/07/16 22:00 07/14/16 21:59 07/09/16 09:01 Cyanocobalamin (Vitamin B12) 1,000 mcg DAILY SUBQ 07/08/16 14:00 07/10/16 09:01 07/09/16 09:01 Dextrose (Dextrose 50%) STAT PRN IV Hypoglycemia 07/07/16 22:00 08/06/16 21:59 Heparin Sodium (Porcine) (Heparin 5000 units/ml) 5,000 units EVERY 12 HOURS SUBQ 07/07/16 22:00 08/06/16 21:59 07/09/16 09:03 Lorazepam (Ativan 2mg/ml 1ml) 0.5 mg Q4H PRN IV For Anxiety 07/07/16 22:00 07/14/16 21:59 Morphine Sulfate (Morphine Sulfate) 1 mg Q4H PRN IVP For Pain 07/07/16 22:00 07/14/16 21:59 Ondansetron HCl (Zofran) 4 mg Q6H PRN IVP Nausea & Vomiting 07/07/16 22:00 08/06/16 21:59 Polyethylene Glycol (Miralax) 17 gm HSPRN PRN ORAL Constipation 07/07/16 22:00 08/06/16 21:59 Vancomycin HCl (Vanco rx to dose) 1 ea DAILY PRN MISC Per rx protocol 07/07/16 22:00 08/06/16 21:59 Vancomycin HCl/ Dextrose (Vancomycin/D5W) 275 ml @ 183.708 mls/hr Q12H IVPB 07/08/16 04:00 07/13/16 03:59 07/09/16 04:01 Zolpidem Tartrate (Ambien) 5 mg HSPRN PRN ORAL Insomnia 07/07/16 22:00 08/06/16 21:59 Joie Noble M.D. Jul 09, 2016 16:27
[2016-07-09 20:00] VITALS: BP 113/72
--- NOTE | 2016-07-09 21:57 | Consultation ---
DATE OF CONSULTATION: INFECTIOUS DISEASE CONSULTATION CONSULTING PHYSICIAN: Joie Noble M.D. REQUESTING PHYSICIAN: Neeta Alex M.D. REASON FOR CONSULTATION: Fever and sepsis, recommendation for antibiotics therapy. HISTORY OF PRESENT ILLNESS: The patient is a 70-year-old male with past medical history significant for hypertension and hyperlipidemia, was sent to [facility] for evaluation of dizziness. The patient was found to be bradycardic in the emergency room with heart rate of 47 with complete right bundle-block branch block. He denied any fever or chills. No cough or shortness of breath. No nausea, vomiting, or diarrhea. No dysuria or hematuria. The patient was admitted to the patient monitor unit for further evaluation and management and he was evaluated by Cardiology and Neurology. His symptoms so far have improved. He does not have any fever since admission date and his white count has been normal since admission date, but he was started on IV antibiotics by the primary provider physician and I was asked for antibiotics recommendation to treat for possible sepsis. The patient feels much better today, his symptoms improved, no longer has dizziness, and no longer had bradycardia. REVIEW OF SYSTEMS: Fourteen point of systems reviewed were all negative apart from the one I mentioned above in my history and physical. PAST MEDICAL HISTORY: Significant for hypertension and hyperlipidemia. FAMILY HISTORY: Negative for recurrent infection or immunocompromised condition. SOCIAL HISTORY: The patient lives at home with family. Denied using any drugs, tobacco, or alcohol. ALLERGIES: He has no known drug allergy. MEDICATIONS: The patient was started on vancomycin and cefepime by the primary provider. For the rest of his medications, please refer to MAR. PHYSICAL EXAMINATION: VITAL SIGNS: Temperature 97.7, pulse 60, respirations 20, blood pressure 108/77, and pulse oximetry 98% on room air. GENERAL: This is a middle-aged male, Indonesian speaker, up in bed, awake, alert, not in distress. HEENT: Normocephalic and atraumatic. Pupils, both reactive to light equally. Moist oral mucosa. No exudate. NECK: Supple. No lymphadenopathy. CARDIOVASCULAR: Regular rate and rhythm. No murmur. No gallop. LUNGS: Clear bilaterally. No wheezing or rhonchi. Normal breathing efforts. ABDOMEN: Soft, nontender, and nondistended. Positive bowel sounds. No hepatosplenomegaly or ascites. EXTREMITIES: No edema. No cyanosis. LABORATORY AND DIAGNOSTIC DATA: Labs on 06/06/2016 showed white count of 6.2, hemoglobin of 14.3, and platelet count of 228,000. BUN of 18 and creatinine of 1. AST 19, ALT 15, and alkaline phosphatase of 92. Serology, his RPR screening was negative. Imaging: Chest x-ray on admission showed no acute process. Head CT scan without contrast showed no acute pathology. ASSESSMENT AND PLAN: 1. Dizziness, unclear whether central nervous system related versus cardiac. The patient has been evaluated by Neurology and Cardiology with unknown etiology, could be benign positional vertigo. I recommend MRI of the brain if symptoms are recurrent while he is in the hospital and possible Holter monitor as an outpatient to rule out arrhythmia related dizziness since he is bradycardic. 2. Bradycardia, unclear whether sinus node malfunction or atrioventricular node related degenerative changes. 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 He may benefit from Holter monitor. Continue telemetry. 3. Hypertension, well controlled. Maintain blood pressure more than 100 systolic. At this point, I do not see any source of infection or sepsis. The patient does not have fever since admission. I will stop his all antibiotics and monitor off antibiotics in the hospital. Joie Noble M.D. DR: ALEXIA JOB#: [id number] CC: TIMO
[2016-07-10 00:24] VITALS: BP 121/72
[2016-07-10 04:23] VITALS: BP 114/74
[2016-07-10 08:00] VITALS: BP 121/77
[2016-07-10] MEDS: Vitamin B12 1000mcg/ml Inj SUBQ SCH (08:13)
[2016-07-10] MEDS: Heparin 5000 units/ml inj SUBQ SCH ×2 (08:17→20:12)
--- NOTE | 2016-07-10 11:36 | General Progress Note ---
Assessment/Plan Problem List: (1) Dizziness ICD Codes: R42 - Dizziness and giddiness SNOMED: 431741093, [id number] (2) Bradycardia ICD Codes: R00.1 - Bradycardia, unspecified SNOMED: 73405448, 529068256 Status: progressing Assessment/Plan transfered to [facility] for symptomatic bradycardia will discuss w dr may parker plan of care had fever consulted id getting better Subjective ROS Limited/Unobtainable: Yes Constitutional: Reports: no symptoms Allergies: Coded Allergies: No Known Allergies (Unverified , 11/16/13) Subjective dizzy Objective Last 24 Hour Vital Signs Date Time Temp Pulse Resp B/P Pulse Ox O2 Delivery O2 Flow Rate FiO2 07/10/16 08:00 97.7 55 18 121/77 98 Room Air 07/10/16 08:00 62 07/10/16 04:23 98.3 58 19 114/74 98 Room Air 07/10/16 04:00 52 07/10/16 00:24 98.8 53 20 121/72 98 Room Air 07/10/16 00:00 48 07/09/16 20:00 55 07/09/16 20:00 97.8 57 20 113/72 97 Room Air 07/09/16 16:00 62 07/09/16 16:00 97.7 60 20 108/77 98 Room Air 07/09/16 12:00 65 07/09/16 12:00 97.7 55 119/68 Room Air Intake and Output 07/09/16 07/10/16 19:00 07:00 Intake Total 515 ml 500 ml Output Total 860 ml Balance -345 ml 500 ml Intake Oral 460 ml 500 ml IV Total 55 ml Output Urine Total 860 ml # Voids 3 4 Laboratory Tests 07/09/16 15:20: Vancomycin Level Trough 14.6H Height (Feet): 5 Height (Inches): 6.00 Weight (Pounds): 153 EENT: PERRL/EOMI Neck: supple Cardiovascular: regular rhythm Respiratory/Chest: lungs clear Abdomen: soft Neeta Alex MD Jul 10, 2016 11:36
[2016-07-10 12:00] VITALS: BP 134/77
[2016-07-10] MEDS ORDERED: NS 275ml ONE (14:40)
--- NOTE | 2016-07-10 15:02 | Infectious Diseases Prog Note ---
Assessment/Plan Problems: (1) Dizziness Assessment & Plan: suspect BPV, VS bradycardia related , cardiology and neurology are following , recommend MRI of the brain if recurrent, and Holter monitor as an outpatient (2) Bradycardia Assessment & Plan: off eren blocking agents, cardiology is following . Assessment/Plan no evidence of sepsis or infection based on his labs and symptoms. no need for antibiotics at this point will observe off antibiotics . further recommendations as per cardiology and neurology Subjective Constitutional: Denies: anorexia, chills, drenching sweats, fatigue, fever, no symptoms, other HEENT: Denies: congestion, coryza, dysphagia, hearing change, no symptoms, other, visual change Respiratory: Denies: dry cough, no symptoms, other, productive cough, shortness of breath Breasts: Denies: discharge, no symptoms, other, swelling, tenderness Cardiovascular: Denies: chest pain, dyspnea on exertion, no symptoms, other, palpitations Neurologic: Denies: confusion, headache, no symptoms, numbness, other, weakness Psychiatric: Denies: anxiety, depression, no symptoms, other Skin: Denies: no symptoms, other, rash, ulcer Endocrine: Denies: feels cold, feels warm, no symptoms, other Hematologic: Denies: bleeding, no symptoms, other, swollen lymph nodes Allergies: Coded Allergies: No Known Allergies (Unverified , 11/16/13) Objective Vital Signs Last 24 Hour Vital Signs Date Time Temp Pulse Resp B/P Pulse Ox O2 Delivery O2 Flow Rate FiO2 07/10/16 12:00 97.7 54 17 134/77 98 Room Air 07/10/16 12:00 55 07/10/16 08:00 97.7 55 18 121/77 98 Room Air 07/10/16 08:00 62 07/10/16 04:23 98.3 58 19 114/74 98 Room Air 07/10/16 04:00 52 07/10/16 00:24 98.8 53 20 121/72 98 Room Air 07/10/16 00:00 48 07/09/16 20:00 55 07/09/16 20:00 97.8 57 20 113/72 97 Room Air 07/09/16 16:00 62 07/09/16 16:00 97.7 60 20 108/77 98 Room Air Height (Feet): 5 Height (Inches): 6.00 Weight (Pounds): 153 General Appearance: WD/WN, no acute distress HEENT: normocephalic, atraumatic, mucous membranes moist, PERRL Respiratory/Chest: chest wall non-tender, lungs clear, normal breath sounds, no respiratory distress, no accessory muscle use Cardiovascular: normal peripheral pulses, normal rate, regular rhythm Abdomen: normal bowel sounds, soft, non tender, no organomegaly, non distended Extremities: no cyanosis, no clubbing Skin: no rash, no lesions, no ulcers Neurologic/Psychiatric: alert, oriented x 3, responsive Laboratory Tests Test 07/09/16 15:20 Vancomycin Level Trough 14.6 ug/mL (5.0-12.0) H Current Medications Medications (Trade) Dose Ordered Sig/Hill Route PRN Reason Start Time Stop Time Status Last Admin Dose Admin Acetaminophen (Tylenol) 650 mg Q4H PRN ORAL fever 07/07/16 22:00 08/06/16 21:59 Al Hydroxide/Mg Hydroxide (Mylanta II) 30 ml Q6H PRN ORAL dyspepsia 07/07/16 22:00 08/06/16 21:59 Dextrose (Dextrose 50%) STAT PRN IV Hypoglycemia 07/07/16 22:00 08/06/16 21:59 Heparin Sodium (Porcine) (Heparin 5000 units/ml) 5,000 units EVERY 12 HOURS SUBQ 07/07/16 22:00 08/06/16 21:59 07/10/16 08:17 Lorazepam (Ativan 2mg/ml 1ml) 0.5 mg Q4H PRN IV For Anxiety 07/07/16 22:00 07/14/16 21:59 Morphine Sulfate (Morphine Sulfate) 1 mg Q4H PRN IVP For Pain 07/07/16 22:00 07/14/16 21:59 Ondansetron HCl (Zofran) 4 mg Q6H PRN IVP Nausea & Vomiting 07/07/16 22:00 08/06/16 21:59 Polyethylene Glycol (Miralax) 17 gm HSPRN PRN ORAL Constipation 07/07/16 22:00 08/06/16 21:59 Zolpidem Tartrate (Ambien) 5 mg HSPRN PRN ORAL Insomnia 07/07/16 22:00 08/06/16 21:59 Joie Noble M.D. 4, 2017 15:02
--- NOTE | 2016-07-10 15:06 | Cardiac Electrophysiology PN ---
Assessment/Plan Assessment/Plan 1. Bradycardia.Resolved. Keep off any sinus eren or AV eren blocking agent. The patient's TSH is mildly elevated. Echocardiogram showed EF 55%. 2. Hypertension, Off BP meds stable now. 3. Dyslipidemia 4. WBC normal and No fever. ID consult noted. Abx DCed. DW Dr Alex OK to DC from cardiac perspective. Subjective Subjective Comfortable in NAD. Family at bedside. Objective Last 24 Hour Vital Signs Date Time Temp Pulse Resp B/P Pulse Ox O2 Delivery O2 Flow Rate FiO2 07/10/16 12:00 97.7 54 17 134/77 98 Room Air 07/10/16 12:00 55 07/10/16 08:00 97.7 55 18 121/77 98 Room Air 07/10/16 08:00 62 07/10/16 04:23 98.3 58 19 114/74 98 Room Air 07/10/16 04:00 52 07/10/16 00:24 98.8 53 20 121/72 98 Room Air 07/10/16 00:00 48 07/09/16 20:00 55 07/09/16 20:00 97.8 57 20 113/72 97 Room Air 07/09/16 16:00 62 07/09/16 16:00 97.7 60 20 108/77 98 Room Air Intake and Output 07/09/16 07/10/16 19:00 07:00 Intake Total 515 ml 500 ml Output Total 860 ml Balance -345 ml 500 ml Intake Oral 460 ml 500 ml IV Total 55 ml Output Urine Total 860 ml # Voids 3 4 Laboratory Tests Test 07/09/16 15:20 Vancomycin Level Trough 14.6 ug/mL (5.0-12.0) H Objective NECK: Shows no JVD or carotid bruits. LUNGS: Clear. CARDIOVASCULAR: Regular S1 and S2 with no gallop or murmur. ABDOMEN: Soft. EXTREMITIES: No pitting edema. TREY FINCH Jul 10, 2016 15:06
--- NOTE | 2016-07-10 15:09 | Neurology Progress Note ---
Interim History Interim History Interim History Mr. Ford feels very well. He feels brighter and more energetic. He has had no further vertigo. He denies any new neurologic symptoms. He specifically denies any weakness, numbness, visual problems, speech problems or any other neurologic symptoms. He is eager to go home. Review of Systems Neuro Review of Systems Benign. Objective Physical Exam Last Vital Signs Date Time Temp Pulse Resp B/P Pulse Ox O2 Delivery O2 Flow Rate FiO2 07/10/16 12:00 97.7 54 17 134/77 98 Room Air Laboratory Tests Test 07/09/16 15:20 Vancomycin Level Trough 14.6 ug/mL (5.0-12.0) H Neurologic Exam Objective PHYSICAL EXAMINATION: GENERAL: He is a well-developed, well-nourished, pleasant gentleman, lying in bed, in no acute distress. HEAD: Normocephalic and atraumatic. EENT: Examination benign NECK: No neck rigidity was observed. NEUROLOGICAL EXAMINATION: MENTAL STATUS EXAMINATION: He was alert and awake. He was oriented to person, place, and time. He was able to recall 3/3 words immediately after 1 minute and after 3 minutes. He was able to remember presidents Trump through Ned. His mathematical skills were good. His visuospatial function was preserved. SPEECH: He had no dysarthria. LANGUAGE: He had no aphasia. CRANIAL NERVE EXAMINATION: II: The visual boogie were intact on confrontation testing. III, IV & : The external ocular movements were full and the pupils 3 mm in diameter, equal, round, regular, and reactive to light. V: He had normal facial sensations and the temporales, masseters, and pterygoids functioned normally. VII: He had normal facial expressions and no facial asymmetry. VIII: He was able to hear well bilaterally and had no nystagmus. IX: The palate moved symmetrically on phonation. X: He had no hoarseness of voice. XI: The sternocleidomastoids and trapezii functioned normally. XII: The tongue was in the midline without any fasciculations or atrophy. MOTOR SYSTEM: The tone was normal in all four extremities. Examination of muscle mass revealed no focal wasting. Examination of power revealed grade 5/5 power in all muscle groups tested. SENSORY EXAMINATION: He had intact sensation to pinprick, light touch, and graphesthesia. COORDINATION: He performed well on [id number] and [id number] testing. REFLEXES: 1+ and bilaterally symmetrical at the biceps, triceps, brachioradialis, and knees. 0 at both ankles. The plantar responses were flexor bilaterally. STANCE & GAIT: Steady and independent. Impression/Recommendations Diagnostic Impression 1. Mr. Michael Ford is a 70-year-old, right-handed, gentleman, who does have a past history of hypertension, dyslipidemia, episodic vertigo, and gout, who was hospitalized on 07/06/2016 for few day episode of vertigo whenever he changed position from lying down to sitting up or if he started to stand or walk. 2. He continues to feel better and has had no vertigo. He is also more energetic. 3. The neurological examination is essentially benign except for globally diminished deep tendon reflexes. 4. The CT scan of the brain without contrast is benign. 5. Laboratory data obtained thus far revealed a relatively normal CBC, relatively normal chemistry panel, an elevated TSH at 5.34 with a normal T4 but a low B 12 level. 6. The patient's history and neurological examination are most compatible with labyrinthine vertigo, which may be benign positional vertigo. The vertigo has now resolved. 7. It is unclear if the patient's bradycardia that was seen earlier was contributing to to the vertigo or not. 8. His B 12 deficiency has been treated and he feels more energetic today. Recommendations 1. Continue present management. 2. Management of bradycardia as per Dr. Morfin. 3. Vitamin B 12 - 1000 mcg SC daily x 3 days and then monthly. 4. Increase activity as tolerated. Tyler Martinez M.D., M.S.P.H. TYLER MARTINEZ Jul 10, 2016 15:09
[2016-07-10 16:00] VITALS: BP 118/70
[2016-07-10 20:00] VITALS: BP 118/68
[2016-07-11] VITALS: BP 121/63
[2016-07-11 04:00] VITALS: BP 113/71
[2016-07-11 08:00] VITALS: BP 127/74
[2016-07-11] MEDS: Heparin 5000 units/ml inj SUBQ SCH ×2 (08:10→21:25)
[2016-07-11 12:00] VITALS: BP 128/82
--- NOTE | 2016-07-11 12:44 | General Progress Note ---
Assessment/Plan Problem List: (1) Dizziness ICD Codes: R42 - Dizziness and giddiness SNOMED: 995201358, [id number] (2) Bradycardia ICD Codes: R00.1 - Bradycardia, unspecified SNOMED: 09000832, [id number] Status: progressing Assessment/Plan intermittent fever needs clearance from id before dc for symptomatic bradycardia Subjective Constitutional: Reports: no symptoms Allergies: Coded Allergies: No Known Allergies (Unverified , 11/16/13) Subjective dizzy Objective Last 24 Hour Vital Signs Date Time Temp Pulse Resp B/P Pulse Ox O2 Delivery O2 Flow Rate FiO2 07/11/16 12:00 97.0 62 17 128/82 100 Room Air 07/11/16 08:00 63 07/11/16 08:00 97.7 58 17 127/74 100 Room Air 07/11/16 04:00 48 07/11/16 04:00 98.1 56 16 113/71 97 Room Air 07/11/16 00:00 97.7 57 16 121/63 98 Room Air 07/11/16 00:00 49 07/10/16 20:00 60 07/10/16 20:00 98.2 57 18 118/68 99 Room Air 07/10/16 16:00 97.9 60 18 118/70 99 Room Air 07/10/16 16:00 63 Intake and Output 07/10/16 07/11/16 19:00 07:00 Intake Total 680 ml 740 ml Output Total 860 ml 800 ml Balance -180 ml -60 ml Intake Oral 680 ml 740 ml Output Urine Total 860 ml 800 ml # Voids 3 2 Height (Feet): 5 Height (Inches): 6.00 Weight (Pounds): 153 EENT: PERRL/EOMI Cardiovascular: bradycardia Respiratory/Chest: lungs clear Neeta Alex MD Jul 11, 2016 12:44
--- NOTE | 2016-07-11 13:17 | Neurology Progress Note ---
Interim History Interim History Interim History Mr. Ford feels very well. He feels brighter and more energetic. He has had no further vertigo. He denies any new neurologic symptoms. He specifically denies any weakness, numbness, visual problems, speech problems or any other neurologic symptoms. He is eager to go home. Review of Systems Neuro Review of Systems Benign. Objective Physical Exam Last Vital Signs Date Time Temp Pulse Resp B/P Pulse Ox O2 Delivery O2 Flow Rate FiO2 07/11/16 12:00 97.0 62 17 128/82 100 Room Air Neurologic Exam Objective PHYSICAL EXAMINATION: GENERAL: He is a well-developed, well-nourished, pleasant gentleman, lying in bed, in no acute distress. HEAD: Normocephalic and atraumatic. EENT: Examination benign NECK: No neck rigidity was observed. NEUROLOGICAL EXAMINATION: MENTAL STATUS EXAMINATION: He was alert and awake. He was oriented to person, place, and time. He was able to recall 3/3 words immediately after 1 minute and after 3 minutes. He was able to remember presidents Trump through Ned. His mathematical skills were good. His visuospatial function was preserved. SPEECH: He had no dysarthria. LANGUAGE: He had no aphasia. CRANIAL NERVE EXAMINATION: II: The visual boogie were intact on confrontation testing. III, IV & : The external ocular movements were full and the pupils 3 mm in diameter, equal, round, regular, and reactive to light. V: He had normal facial sensations and the temporales, masseters, and pterygoids functioned normally. VII: He had normal facial expressions and no facial asymmetry. VIII: He was able to hear well bilaterally and had no nystagmus. IX: The palate moved symmetrically on phonation. X: He had no hoarseness of voice. XI: The sternocleidomastoids and trapezii functioned normally. XII: The tongue was in the midline without any fasciculations or atrophy. MOTOR SYSTEM: The tone was normal in all four extremities. Examination of muscle mass revealed no focal wasting. Examination of power revealed grade 5/5 power in all muscle groups tested. SENSORY EXAMINATION: He had intact sensation to pinprick, light touch, and graphesthesia. COORDINATION: He performed well on jrhygx-[id number] and fdzr-by-ezve testing. REFLEXES: 1+ and bilaterally symmetrical at the biceps, triceps, brachioradialis, and knees. 0 at both ankles. The plantar responses were flexor bilaterally. STANCE & GAIT: Steady and independent. Impression/Recommendations Diagnostic Impression 1. Mr. Michael Ford is a 70-year-old, right-handed, gentleman, who does have a past history of hypertension, dyslipidemia, episodic vertigo, and gout, who was hospitalized on 07/06/2016 for few day episode of vertigo whenever he changed position from lying down to sitting up or if he started to stand or walk. 2. He continues to feel better and has had no vertigo. He is also more energetic. 3. The neurological examination is essentially benign except for globally diminished deep tendon reflexes. 4. The CT scan of the brain without contrast is benign. 5. Laboratory data obtained thus far revealed a relatively normal CBC, relatively normal chemistry panel, an elevated TSH at 5.34 with a normal T4 but a low B 12 level. 6. The patient's history and neurological examination are most compatible with labyrinthine vertigo, which may be benign positional vertigo. The vertigo has now resolved. 7. It is unclear if the patient's bradycardia that was seen earlier was contributing to to the vertigo or not. 8. His B 12 deficiency has been treated and he feels more energetic today - it is unclear if the B 12 deficiency contributed to his vertigo. Recommendations 1. Continue present management. 2. Management of bradycardia as per Dr. Morfin. 3. Vitamin B 12 - 1000 mcg SC daily x 3 days and then monthly. 4. Increase activity as tolerated. Tyler Martinez M.D., M.S.P.[facility]. TYLER MARTINEZ Jul 11, 2016 13:17
[2016-07-11 16:00] VITALS: BP 112/73
--- NOTE | 2016-07-11 17:31 | Infectious Diseases Prog Note ---
Assessment/Plan Problems: (1) Dizziness Assessment & Plan: suspect BPV, VS bradycardia related , cardiology and neurology are following , recommend MRI of the brain if recurrent, and Holter monitor as an outpatient (2) Bradycardia Assessment & Plan: off eren blocking agents, cardiology is following . Assessment/Plan no evidence of sepsis or infection based on his labs and symptoms. no need for antibiotics at this point will observe off antibiotics . further recommendations as per cardiology and neurology Subjective Constitutional: Denies: anorexia, chills, drenching sweats, fatigue, fever, no symptoms, other HEENT: Denies: congestion, coryza, dysphagia, hearing change, no symptoms, other, visual change Respiratory: Denies: dry cough, no symptoms, other, productive cough, shortness of breath Breasts: Denies: discharge, no symptoms, other, swelling, tenderness Cardiovascular: Denies: chest pain, dyspnea on exertion, no symptoms, other, palpitations Gastrointestinal/Abdominal: Denies: bloating, blood in stool, constipation, diarrhea, nausea, no symptoms, other, vomiting Genitourinary: Denies: dysuria, frequency, hematuria, no symptoms, nocturia, other Neurologic: Denies: confusion, headache, no symptoms, numbness, other, weakness Psychiatric: Denies: anxiety, depression, no symptoms, other Skin: Denies: no symptoms, other, rash, ulcer Endocrine: Denies: feels cold, feels warm, no symptoms, other Allergies: Coded Allergies: No Known Allergies (Unverified , 11/16/13) Objective Vital Signs Last 24 Hour Vital Signs Date Time Temp Pulse Resp B/P Pulse Ox O2 Delivery O2 Flow Rate FiO2 07/11/16 16:00 97.3 62 18 112/73 97 Room Air 07/11/16 12:00 97.0 62 17 128/82 100 Room Air 07/11/16 12:00 55 07/11/16 08:00 63 07/11/16 08:00 97.7 58 17 127/74 100 Room Air 07/11/16 04:00 48 07/11/16 04:00 98.1 56 16 113/71 97 Room Air 07/11/16 00:00 97.7 57 16 121/63 98 Room Air 07/11/16 00:00 49 07/10/16 20:00 60 07/10/16 20:00 98.2 57 18 118/68 99 Room Air Height (Feet): 5 Height (Inches): 6.00 Weight (Pounds): 153 General Appearance: WD/WN, no acute distress HEENT: normocephalic, atraumatic, anicteric, mucous membranes moist Respiratory/Chest: chest wall non-tender, lungs clear, normal breath sounds Cardiovascular: normal peripheral pulses, normal rate, regular rhythm, no gallop/murmur, no JVD Abdomen: normal bowel sounds, soft, non tender, no organomegaly, non distended , no mass, no scars Extremities: no cyanosis, no clubbing Skin: no rash, no lesions, no ulcers Current Medications Medications (Trade) Dose Ordered Sig/Hill Route PRN Reason Start Time Stop Time Status Last Admin Dose Admin Acetaminophen (Tylenol) 650 mg Q4H PRN ORAL fever 07/07/16 22:00 08/06/16 21:59 Al Hydroxide/Mg Hydroxide (Mylanta II) 30 ml Q6H PRN ORAL dyspepsia 07/07/16 22:00 08/06/16 21:59 Dextrose (Dextrose 50%) STAT PRN IV Hypoglycemia 07/07/16 22:00 08/06/16 21:59 Heparin Sodium (Porcine) (Heparin 5000 units/ml) 5,000 units EVERY 12 HOURS SUBQ 07/07/16 22:00 08/06/16 21:59 07/11/16 08:10 Lorazepam (Ativan 2mg/ml 1ml) 0.5 mg Q4H PRN IV For Anxiety 07/07/16 22:00 07/14/16 21:59 Morphine Sulfate (Morphine Sulfate) 1 mg Q4H PRN IVP For Pain 07/07/16 22:00 07/14/16 21:59 Ondansetron HCl (Zofran) 4 mg Q6H PRN IVP Nausea & Vomiting 07/07/16 22:00 08/06/16 21:59 Polyethylene Glycol (Miralax) 17 gm HSPRN PRN ORAL Constipation 07/07/16 22:00 08/06/16 21:59 Zolpidem Tartrate (Ambien) 5 mg HSPRN PRN ORAL Insomnia 07/07/16 22:00 08/06/16 21:59 Joie Noble M.D. Jul 11, 2016 17:31
[2016-07-11 20:00] VITALS: BP 115/75
[2016-07-12] VITALS: BP 121/71
[2016-07-12 01:14] VITALS: BP 121/71
[2016-07-12 04:48] VITALS: BP 114/76
[2016-07-12 08:03] VITALS: BP 123/72
[2016-07-12 08:47] LABS: VITAMIN D 25-OH TOTAL 15 ng/mL (.)
[2016-07-12] MEDS: Heparin 5000 units/ml inj SUBQ SCH ×2 (09:00→09:04)
--- NOTE | 2016-07-12 11:22 | General Progress Note ---
Assessment/Plan Problem List: (1) Dizziness ICD Codes: R42 - Dizziness and giddiness SNOMED: 317485061, [id number] (2) Bradycardia ICD Codes: R00.1 - Bradycardia, unspecified SNOMED: 14814391, [id number] Status: progressing Assessment/Plan afebrile bradycardia fever sepsis needs clearance from id before dc Subjective ROS Limited/Unobtainable: Yes Constitutional: Reports: no symptoms Allergies: Coded Allergies: No Known Allergies (Unverified , 11/16/13) Subjective dizzy Objective Last 24 Hour Vital Signs Date Time Temp Pulse Resp B/P Pulse Ox O2 Delivery O2 Flow Rate FiO2 07/12/16 08:03 97.5 53 20 123/72 99 Room Air 07/12/16 07:20 48 07/12/16 04:48 97.2 97 20 114/76 97 Room Air 07/12/16 04:03 52 07/12/16 01:14 97.3 57 20 121/71 99 Room Air 07/12/16 00:02 48 07/12/16 00:00 97.3 57 20 121/71 99 Room Air 07/11/16 20:00 98.2 64 18 115/75 97 Room Air 07/11/16 20:00 70 07/11/16 19:49 70 07/11/16 16:00 62 07/11/16 16:00 97.3 62 18 112/73 97 Room Air 07/11/16 12:00 97.0 62 17 128/82 100 Room Air 07/11/16 12:00 55 Intake and Output 07/11/16 07/12/16 19:00 07:00 Intake Total 480 ml 400 ml Output Total 350 ml Balance 480 ml 50 ml Intake Oral 480 ml 400 ml Output Urine Total 350 ml # Voids 2 2 # Bowel Movements 3 Height (Feet): 5 Height (Inches): 6.00 Weight (Pounds): 153 EENT: PERRL/EOMI Neck: supple Cardiovascular: normal rate Respiratory/Chest: lungs clear Abdomen: soft Neeta Alex MD Jul 12, 2016 11:22
[2016-07-12 11:27] VITALS: BP 112/61
--- NOTE | 2016-07-12 12:59 | Neurology Progress Note ---
Interim History Interim History Interim History Mr. Ford feels very well. He is brighter and more energetic. He has had no further vertigo. He feels he is back to his normal self. He denies any new neurologic symptoms. He specifically denies any weakness, numbness, visual problems, speech problems or any other neurologic symptoms. He is eager to go home. Review of Systems Neuro Review of Systems Benign. Objective Physical Exam Last Vital Signs Date Time Temp Pulse Resp B/P Pulse Ox O2 Delivery O2 Flow Rate FiO2 07/12/16 11:28 51 07/12/16 11:27 97.6 20 112/61 100 Room Air Neurologic Exam Objective PHYSICAL EXAMINATION: GENERAL: He is a well-developed, well-nourished, pleasant gentleman, lying in bed, in no acute distress. HEAD: Normocephalic and atraumatic. EENT: Examination benign NECK: No neck rigidity was observed. NEUROLOGICAL EXAMINATION: MENTAL STATUS EXAMINATION: He was alert and awake. He was oriented to person, place, and time. He was able to recall 3/3 words immediately after 1 minute and after 3 minutes. He was able to remember presidents Trump through Ned. His mathematical skills were good. His visuospatial function was preserved. SPEECH: He had no dysarthria. LANGUAGE: He had no aphasia. CRANIAL NERVE EXAMINATION: II: The visual boogie were intact on confrontation testing. III, IV & : The external ocular movements were full and the pupils 3 mm in diameter, equal, round, regular, and reactive to light. V: He had normal facial sensations and the temporales, masseters, and pterygoids functioned normally. VII: He had normal facial expressions and no facial asymmetry. VIII: He was able to hear well bilaterally and had no nystagmus. IX: The palate moved symmetrically on phonation. X: He had no hoarseness of voice. XI: The sternocleidomastoids and trapezii functioned normally. XII: The tongue was in the midline without any fasciculations or atrophy. MOTOR SYSTEM: The tone was normal in all four extremities. Examination of muscle mass revealed no focal wasting. Examination of power revealed grade 5/5 power in all muscle groups tested. SENSORY EXAMINATION: He had intact sensation to pinprick, light touch, and graphesthesia. COORDINATION: He performed well on eahqkj-dq-ciku and pprg-ll-tnae testing. REFLEXES: 1+ and bilaterally symmetrical at the biceps, triceps, brachioradialis, and knees. 0 at both ankles. The plantar responses were flexor bilaterally. STANCE & GAIT: Steady and independent. Impression/Recommendations Diagnostic Impression 1. Mr. Michael Ford is a 70-year-old, right-handed, gentleman, who does have a past history of hypertension, dyslipidemia, episodic vertigo, and gout, who was hospitalized on 07/06/2016 for few day episode of vertigo whenever he changed position from lying down to sitting up or if he started to stand or walk. 2. He continues to feel very well and has had no vertigo. He is also more energetic. 3. The neurological examination is essentially benign except for globally diminished deep tendon reflexes. 4. The CT scan of the brain without contrast is benign. 5. Laboratory data obtained thus far revealed a relatively normal CBC, relatively normal chemistry panel, an elevated TSH at 5.34 with a normal T4 but a low B 12 level. 6. The patient's history and neurological examination are most compatible with labyrinthine vertigo, which may be benign positional vertigo. The vertigo has now resolved. 7. It is unclear if the patient's bradycardia that was seen earlier was contributing to to the vertigo or not. 8. His B 12 deficiency has been treated and he feels much more energetic - it is unclear if the B 12 deficiency contributed to his vertigo. Recommendations 1. Continue present management. 2. Management of bradycardia as per Dr. Morfin. 3. Vitamin B 12 - 1000 mcg SC monthly. 4. Increase activity as tolerated. Roger Martinez M.D., M.S.P.Jessica. ROGER MARTINEZ Jul 12, 2016 12:59
--- NOTE | 2016-07-12 18:04 | Infectious Diseases Prog Note ---
Assessment/Plan Problems: (1) Dizziness Assessment & Plan: suspect BPV, VS bradycardia related , cardiology and neurology are following , recommend MRI of the brain if recurrent, and Holter monitor as an outpatient (2) Bradycardia Assessment & Plan: off eren blocking agents, cardiology is following . Assessment/Plan no evidence of sepsis or infection based on his labs and symptoms. no need for antibiotics at this point, will observe off antibiotics . further recommendations as per cardiology and neurology Subjective Constitutional: Denies: anorexia, chills, drenching sweats, fatigue, fever, no symptoms, other HEENT: Denies: congestion, coryza, dysphagia, hearing change, no symptoms, other, visual change Respiratory: Denies: dry cough, no symptoms, other, productive cough, shortness of breath Breasts: Denies: discharge, no symptoms, other, swelling, tenderness Cardiovascular: Denies: chest pain, dyspnea on exertion, no symptoms, other, palpitations Gastrointestinal/Abdominal: Denies: bloating, blood in stool, constipation, diarrhea, nausea, no symptoms, other, vomiting Genitourinary: Denies: dysuria, frequency, hematuria, no symptoms, nocturia, other Neurologic: Denies: confusion, headache, no symptoms, numbness, other, weakness Psychiatric: Denies: anxiety, depression, no symptoms, other Skin: Denies: no symptoms, other, rash, ulcer Endocrine: Denies: feels cold, feels warm, no symptoms, other Hematologic: Denies: bleeding, no symptoms, other, swollen lymph nodes Allergies: Coded Allergies: No Known Allergies (Unverified , 11/16/13) Objective Vital Signs Last 24 Hour Vital Signs Date Time Temp Pulse Resp B/P Pulse Ox O2 Delivery O2 Flow Rate FiO2 07/12/16 11:28 51 07/12/16 11:27 97.6 53 20 112/61 100 Room Air 07/12/16 08:03 97.5 53 20 123/72 99 Room Air 07/12/16 07:20 48 07/12/16 04:48 97.2 97 20 114/76 97 Room Air 07/12/16 04:03 52 07/12/16 01:14 97.3 57 20 121/71 99 Room Air 07/12/16 00:02 48 07/12/16 00:00 97.3 57 20 121/71 99 Room Air 07/11/16 20:00 98.2 64 18 115/75 97 Room Air 07/11/16 20:00 70 07/11/16 19:49 70 Height (Feet): 5 Height (Inches): 6.00 Weight (Pounds): 153 General Appearance: WD/WN, no acute distress HEENT: normocephalic, atraumatic, anicteric, mucous membranes moist Respiratory/Chest: chest wall non-tender, lungs clear, no accessory muscle use , respiratory distress Cardiovascular: normal peripheral pulses, normal rate, regular rhythm, no gallop/murmur, no JVD Abdomen: normal bowel sounds, soft, non tender, no organomegaly, non distended , no mass, no scars Extremities: no cyanosis, no clubbing Skin: no rash, no lesions, no ulcers Joie Noble M.D. Jul 12, 2016 18:04
[2016-07-13] MEDS ORDERED: VITAMIN D1000 UNI1 ORAL (14:47)
[2016-07-13] MEDS ORDERED: CYANOCOBAL1000 MCG/2 SQ (14:51)
--- NOTE | 2016-07-13 14:53 | Discharge Summary ---
Discharge Summary Hospital Course Date of Admission Jul 06, 2016 at 21:46 Date of Discharge Jul 12, 2016 at 14:46 Admitting Diagnosis Dizziness,bradycardia HPI Michael Ford is a 70 year old male who was admitted on Jul 06, 2016 at 21:46 for Dizziness/Bradycardia Hospital Course dc summary dictated #[id number] Discharge Medications New Medications: Cholecalciferol (Vitamin D3)* (Vitamin D*) 1,000 Unit Tablet 1000 UNITS ORAL DAILY, #30 TAB Cyanocobalamin (Vitamin B-12) (Cyanocobalamin Injection) 1,000 Mcg/1 Ml Vial 1000 MCG SQ ONCE, #3 VIAL give once a month 1000 mcg SQ cehck level in 2-3 months Continued Medications: Allopurinol* (Allopurinol*) 300 Mg Tablet 300 MG ORAL DAILY, TAB Amlodipine Besylate* (Amlodipine Besylate*) 10 Mg Tablet 10 MG ORAL DAILY, TAB Aspirin* (Aspir 81*) 81 Mg Tablet.dr 81 MG ORAL DAILY, TAB Famotidine (Pepcid) 40 Mg Tablet 40 MG PO DAILY, #21 TAB 0 Refills Gemfibrozil (Gemfibrozil*) 600 Mg Tablet 600 MG ORAL, TAB 0 Refills Hydrocodone Bit/Acetaminophen 5-325* ([place] 5-325*) 1 Each Tablet 1 TAB ORAL Q6H PRN for For Pain, #20 TAB Discharge Condition Upon Discharge: stable Discharge Disposition Patient was discharged to Home (01) Discharge Diagnoses: Discharge Instructions Discharge Instructions Special Instructions I have been assigned to complete a D/C Summary on this account. I was not involved in the patient management Lyssa Dolan NP (Vanchtein) Jul 13, 2016 14:53
--- NOTE | 2016-07-14 04:47 | Discharge Summary 2 SIG ---
DATE OF ADMISSION: 07/06/2016 DATE OF DISCHARGE: 07/12/2016 REASON FOR ADMISSION: 70-year-old male presented with four days of dizziness, worse with moving head up and down, and when getting up from the bed. He denied chest pain, shortness of breath, palpitations and dizziness. No blackouts. No lightheadedness. He denied fever, chills, or cough. The patient denied history of CVA, CA. He has a history of hypertension and hyperlipidemia, taking aspirin and Gemfibrozil. The patient had no associated tinnitus. No ear pain. No headaches. No neck pain or stiffness. In the emergency room the patient was evaluated. EKG revealed sinus bradycardia with right bundle-branch block, heart rate of 111. Chest x-ray revealed no acute cardiopulmonary disease. Troponin was negative. Hemoglobin and hematocrit were stable. No leukocytosis. Electrolytes were stable. CT of the head was negative for any acute intracranial pathology. He was afebrile. No cerebellar signs. No focal neuro deficits. The symptoms were consistent with benign positional vertigo; however, the Mamta-Hallpike maneuver was negative. Symptoms were not reproducible on exam. The patient in the emergency department was given meclizine and lorazepam orally with mild improvement and was sent to the floor for admission. ADMITTING DIAGNOSES: 1. Dizziness. 2. Bradycardia. HOSPITAL STAY: The patient was placed on telemetry. Neurology and Cardiology followed the patient. Initially, ENT consult was requested. ENT doctor, Dr. Bellamy, concluded that his symptoms were not related to middle or inner ear problems. The patient was on antibiotics prior to arrival to ER. On exam, no evidence of ear infection. No recent upper respiratory infection. Thus ENT concluded that there were no ear issues. Neurology and Cardiology followed the patient. Echocardiogram revealed preserved ejection fraction of 50% to 55%, right ventricular systolic pressure of 7, no evidence of LVH, and no evidence of valvular disease. Outcome Analyst recommended to keep the patient off any sinus eren or AV eren blocking agents. The patient is usually on calcium channel marc, which was discontinued in the hospital due to hypotension. Lipid panel revealed borderline LDL. On gemfibrozil, educated on low fat cardiac diet, repeat lipid panel in 3 months, may need to start on low dose statin in addition to gemfibrozil. Neurologist followed the patient. Per Neurology, there was no evidence of central vertigo. No focal neuro deficits. Stable CT of the head. The patient was improving with IV hydration as well as the physical and occupational therapy. Outcome Analyst stated that the patient cardiovascular status was stable. Both splitting machine feeder and neurologist concluded that the dizziness most probably was of vasovagal origin , secondary to dehydration . Dizziness was resolved after IV fluids. Laboratory workup revealed B12 deficiency. The patient initially for three days on daily B12 supplementation, then follow up with a monthly injection of 1000 mcg subcutaneously. Also noted vitamin D deficiency. The patient needs to be on daily vitamin D supplements. ID was called to evaluate the need for antibiotics. The patient was initially on antibiotics for presumptive ear infection despite the fact that ENT ruled out any ear infection, and ID doctor confirmed no further need for antibiotics since there was no clinical evidence of infection. The patient was stable for discharge home. The patient clinically improved. No further dizziness. Vital signs stable. Still yasmine in 50s, however, asymptomatic at this time. No dizziness. No lightheadedness. No shortness of breath. No chest pain. DISCHARGE DIAGNOSES: 1. Dizziness, likely precipitated by dehydration.-resolved 2. Bradycardia. 3. Dehydration, resolved. 4. History of hypertension. 5. Hyperlipidemia. 6. B12 deficiency. 7. Vitamin D deficiency. DISCHARGE MEDICATIONS: See medication reconciliation list. Continue B12 monthly 1000 mcg as outlined. Continue vitamin D supplements. DISCHARGE INSTRUCTIONS: The patient to be discharged home. Follow up with the primary medical doctor. If symptoms recur, recommend MRI of the brain and Holter. Neeta Alex M.D. I have been assigned to dictate discharge summary on this account and I was not involved in the patient's management. Lyssa Plascenciacori N.P. DR: ADA JOB#: [id number] CC: TIMO
--- NOTE | 2016-07-27 14:19 | Cardiology Report ---
APPROVED REPORT EXAM: Two-dimensional and M-mode echocardiogram with Doppler and color Doppler. INDICATION Shortness of Breath M-Mode DIMENSIONS IVSd.8 (0.7-1.1cm)Left Atrium (MM)2.6 (1.6-4.0cm) LVDd5.0 (3.5-5.6cm)Aortic Root3.1 (2.0-3.7cm) PWd.9 (0.7-1.1cm)Aortic Cusp Exc.1.7 (1.5-2.0cm) LVDs2.8 (2.5-4.0cm) PWs1.3 cm Normal left ventricular chamber size, systolic function and wall motion. Left ventricular ejection fraction estimated to be 50-55 %. No evidence of ventricular hypertrophy. No evidence of pericardial fat or effusion. All other cardiac chamber sizes are within normal limits. Mild focal aortic valve sclerosis with adequate cusp excursion. Mildly thickened mitral valve leaflets with normal excursion. Mild mitral annulus and aortic root calcification. Pulmonic valve not well visualized. Normal tricuspid valve structure. IVC at normal size with physiologic collapse. A color flow and spectral Doppler study was performed and revealed: No aortic regurgitation. Trace mitral regurgitation. Mitral diastolic velocities suggest reduced left ventricular relaxation (Grade I). Trace tricuspid regurgitation. Tricuspid systolic velocities suggests peak right ventricular systolic pressure of 7 mmHg. Trace pulmonic regurgitation present.
== END 2016-07-12 14:46 | disposition home or self-care (01) | DRG 201 ==
LOC: EMR 21:24 → 4W 21:46 → EDBEDREQ 07-07 02:04 → EDBEDREQSVC 07-07 02:04 → EDBEDREQ 07-07 02:08 → 2E 07-07 21:21
DX: R00.1 Bradycardia, unspecified (principal); E53.8 Deficiency of other specified B group vitamins; I10 Essential (primary) hypertension; E86.0 Dehydration; I45.10 Unspecified right bundle-branch block; E78.5 Hyperlipidemia, unspecified; E55.9 Vitamin D deficiency, unspecified; R42 Dizziness and giddiness; M10.9 Gout, unspecified
CPT/HCPCS: 36415; 70450; 71010; 80053; 80061; 80202; 82306; 82550; 82553; 82607; 82746; 83036; 83880; 84165; 84439; 84443; 84481; 84484; 85025; 85651; 86592; 93005; 93306

== ENCOUNTER 2016-08-14 13:13 | Emergency (ER) | payer MEDICAID ==
[~2016-08-14] VITALS: Ht 170.2 cm; Wt 70.3 kg
[~2016-08-14 13:13] MED LIST changes: +ALLOPURINOL300 M1 ORAL; +AMLODIPINE BESY10 MG ORAL; +ASPIR 8181 MG ORAL; +CYANOCOBAL1000 MCG/2 SQ; +GEMFIBROZIL600 MG ORAL; +VITAMIN D1000 UNI1 ORAL
[2016-08-14] MEDS ORDERED: UNOBMED (13:47)
[2016-08-14 14:20] LABS: APPEARANCE,URINE CLEAR; KETONES,URINE NEGATIVE (NEGATIVE); LEUKOCYTE ESTERASE ,URINE 1+ (NEGATIVE); NITRITE,URINE NEGATIVE (NEGATIVE); PH,URINE 5 (4.5-8.0); PROTEIN,URINE NEGATIVE (NEGATIVE); UROBILINOGEN,URINE NORMAL MG/DL (0.0-1.0)
[2016-08-14 14:31] LABS: BACTERIA,URINE OCCASIONAL /HPF; RBC,URINE 0-2 /HPF (0 - 0); SQUAMOUS EPITHELIAL CELL,UR OCCASIONAL /LPF (NONE/OCC)
[2016-08-14 15:03] LABS: BASOPHILS % (AUTO) 1.7 % (0.0-2.0); EOSINOPHILS % (AUTO) 3.5 % (0.0-3.0); LYMPHOCYTES % (AUTO) 19.5 % (20.0-45.0); MEAN CORPUSCULAR HEMOGLOBIN 31.2 PG (27.0-31.0); MEAN CORPUSCULAR HGB CONC 33.4 G/DL (32.0-36.0); MEAN CORPUSCULAR VOLUME 93 FL (80-99); MEAN PLATELET VOLUME 7.3 FL (6.5-10.1); MONOCYTES % (AUTO) 8.5 % (1.0-10.0); NEUTROPHILS % (AUTO) 66.8 % (45.0-75.0); PLATELET COUNT 252 K/UL (150-450); RED BLOOD COUNT 4.83 M/UL (4.70-6.10); RED CELL DISTRIBUTION WIDTH 12.2 % (11.6-14.8); WHITE BLOOD COUNT 7.6 K/UL (4.8-10.8)
--- NOTE | 2016-08-14 15:10 | Emergency Room Report ---
History of Present Illness General Chief Complaint: Abdominal Pain Source: Patient Present Illness HPI 70-year-old male presents ED for abdominal pain. States that 3 days ago he had epigastric pain but now is having pain in the lower abdomen. Pain is sharp. 8/ 10. Nonradiating. No other aggravating or relieving factors. Notes dysuria. Denies fevers or chills. Denies flank pain. Denies nausea or vomiting. Denies chest pain or shortness of breath. Denies any other associated symptoms Allergies: Coded Allergies: No Known Allergies (Unverified , 11/16/13) Patient History Past Medical History: HTN Past Surgical History: none Pertinent Family History: none Social History: Denies: alcohol use, drug use, smoking Immunizations: UTD Reviewed Nursing Documentation: PMH: Agreed, PSxH: Agreed Nursing Documentation-PMH Past Medical History: No History, Except For Hx Hypertension: Yes Hx Cancer: No Hx Gastrointestinal Problems: No Hx Neurological Problems: No Review of Systems All Other Systems: negative except mentioned in HPI Physical Exam Vital Signs Date Time Temp Pulse Resp B/P Pulse Ox O2 Delivery O2 Flow Rate FiO2 08/14/16 13:40 98.6 61 18 148/75 98 Room Air Sp02 EP Interpretation: reviewed, normal General Appearance: no apparent distress, alert, GCS 15, non-toxic Head: normocephalic Eyes: bilateral eye PERRL, bilateral eye normal inspection ENT: normal ENT inspection Neck: normal inspection Respiratory: chest non-tender, lungs clear, normal breath sounds, speaking full sentences Cardiovascular #1: regular rate, rhythm, no edema Gastrointestinal: normal bowel sounds, soft, non-distended, no guarding, no rebound, tenderness - suprapubic Rectal: deferred Genitourinary: no CVA tenderness Musculoskeletal: normal inspection Neurologic: alert, oriented x3, responsive, motor strength/tone normal, sensory intact, speech normal Psychiatric: normal inspection Skin: normal inspection Lymphatic: normal inspection Medical Decision Making Diagnostic Impression: Primary Impression: Gastroenteritis Additional Impression: Dysuria ER Course Hospital Course 70-year-old male visits ED complaining of suprapubic pain, dysuria Differential diagnosis includes-appendicitis, cholecystitis, small bowel obstruction, gastritis, Clinical course Patient placed on stretcher. After initial history and physical I ordered labs , IV fluids, and CT scan Labs - no leukocytosis, electrolytes ok, LFTs normal, UA some bacteria CT scan shows no acute pathology, enteritis Given dysuria symptoms we will treat for UTI I feel this is a highly complex case requiring extensive working including EKG/ Rhythm strip, Xray/CT/US, Blood/urine lab work, repeat exams while in ED, and administration of strong opiates/narcotics for pain control, admission to hospital or close patient follow up. Diagnosis - gastroenteritis, dysuria Stable and discharged to home with Rx Roberto Angelo. Followup with PMD. Return to ED if symptoms recur or worsen Labs Test 08/14/16 13:40 08/14/16 14:52 Urine Color Pale yellow Urine Appearance Clear Urine pH 5 (4.5-8.0) Urine Specific [place] 1.015 (1.005-1.035) Urine Protein Negative (NEGATIVE) Urine Glucose (UA) Negative (NEGATIVE) Urine Ketones Negative (NEGATIVE) Urine Occult Blood 1+ (NEGATIVE) Urine Nitrite Negative (NEGATIVE) Urine Bilirubin Negative (NEGATIVE) Urine Urobilinogen Normal MG/DL (0.0-1.0) Urine Leukocyte Esterase 1+ (NEGATIVE) Urine RBC 0-2 /HPF (0 - 0) Urine WBC 2-4 /HPF (0 - 0) Urine Squamous Epithelial Cells Occasional /LPF Urine Bacteria Occasional /HPF (NONE) White Blood Count 7.6 K/UL (4.8-10.8) Red Blood Count 4.83 M/UL (4.70-6.10) Hemoglobin 15.1 G/DL (14.2-18.0) Hematocrit 45.2 % (42.0-52.0) Mean Corpuscular Volume 93 FL (80-99) Mean Corpuscular Hemoglobin 31.2 PG (27.0-31.0) Mean Corpuscular Hemoglobin Concent 33.4 G/DL (32.0-36.0) Red Cell Distribution Width 12.2 % (11.6-14.8) Platelet Count 252 K/UL (150-450) Mean Platelet Volume 7.3 FL (6.5-10.1) Neutrophils (%) (Auto) 66.8 % (45.0-75.0) Lymphocytes (%) (Auto) 19.5 % (20.0-45.0) Monocytes (%) (Auto) 8.5 % (1.0-10.0) Eosinophils (%) (Auto) 3.5 % (0.0-3.0) Basophils (%) (Auto) 1.7 % (0.0-2.0) Sodium Level 140 mEQ/L (135-145) Potassium Level 4.3 mEQ/L (3.4-4.9) Chloride Level 98 mEQ/L (98-107) Carbon Dioxide Level 27 mEQ/L (20-30) Anion Gap 15 (5-15) Blood Urea Nitrogen 24 mg/dL (7-23) Creatinine 1.3 mg/dL (0.7-1.2) Estimat Glomerular Filtration Rate 54.9 mL/min (>60) Glucose Level 97 mg/dL (74-106) Calcium Level 9.4 mg/dL (8.6-10.2) Total Bilirubin 0.5 mg/dL (0.0-1.2) Aspartate Amino Transf (AST/SGOT) 20 U/L (5-40) Alanine Aminotransferase (ALT/SGPT) 17 U/L (3-41) Alkaline Phosphatase 104 U/L (40-129) Troponin I < 0.30 ng/mL (<=0.30) Total Protein 7.2 g/dL (6.6-8.7) Albumin 4.5 g/dL (3.5-5.2) Globulin 2.7 g/dL Albumin/Globulin Ratio 1.6 (1.0-2.7) Lipase 40 U/L (< 60) CT/MRI/US Diagnostic Results CT/MRI/US Diagnostic Results : Imaging Test Ordered: CT A/P Impression no acute process. enteritis Last Vital Signs Date Time Temp Pulse Resp B/P Pulse Ox O2 Delivery O2 Flow Rate FiO2 08/14/16 13:40 98.6 61 18 148/75 98 Room Air Status: improved Disposition: HOME, SELF-CARE Condition: Serious Scripts Cephalexin* (KEFLEX*) 500 Mg Capsule 500 MG ORAL Q6H, #28 CAP 0 Refills Prov: DAKOTA JOHNSON M.D. 08/14/16 Dicyclomine Hcl* (BENTYL*) 10 Mg Capsule 10 MG ORAL FOUR TIMES A DAY, #20 CAP Prov: DAKOTA JOHNSON M.D. 08/14/16 DAKOTA JOHNSON M.D. Aug 14, 2016 15:10
[2016-08-14 15:19] VITALS: BP 131/71
[2016-08-14 15:22] LABS: ALBUMIN/GLOBULIN RATIO 1.6 (1.0-2.7); CALCIUM 9.4 mg/dL (8.6-10.2); CREATININE 1.3 mg/dL (0.7-1.2); GLOMERULAR FILTRATION RATE 54.9 mL/min (>60); POTASSIUM 4.3 mEQ/L (3.4-4.9); TOTAL PROTEIN 7.2 g/dL (6.6-8.7); TROPONIN I < 0.30 ng/mL (<=0.30)
[2016-08-14] MEDS ORDERED: BENTYL10 MG ORAL (16:28)
[2016-08-14] MEDS ORDERED: KEFLEX500 MG ORAL (16:28)
[2016-08-14 16:37] VITALS: BP 139/63
--- NOTE | 2016-08-15 09:13 | Diagnostic Imaging Report ---
Indication: ABD PAIN Technique: CT scan of the abdomen and pelvis was performed from the diaphragms to the symphysis pubis with intravenous contrast material only per specific request of the ordering physician.. 5 mm sections were generated. Axial, coronal, and sagittal images are presented. Dose: Total Dose Length Product - DLP [address] Dose Index - CTDIvol(s) 17.05 mGy. Comparison: None Findings: The liver is normal. The gallbladder is unremarkable. The spleen is normal. Pancreas is unremarkable. Adrenal glands are normal. Aorta is normal in caliber. There is calcification of the aorta. Retroperitoneum is free of adenopathy. There is a less than 1 cm low-density lesion in the lower pole the right kidney. Decreased cortex is noted the left kidney which is small. The left renal collecting system and left ureter appear dilated. There is mild dilatation of the right ureter and right renal collecting system as well. The appendix is normal. Fluid-filled loops of small bowel are noted throughout the abdomen. This is nonobstructive. The bladder wall is thickened. The prostate is enlarged. There are some degenerative changes in the spine. Impression: Bladder wall thickening. This may be on the basis of chronic outlet obstruction. Mildly enlarged prostate. Left renal atrophy with chronic hydronephrosis and hydroureter. Mild right hydroureter and hydronephrosis. Small right renal cyst. Atherosclerotic change. Nonspecific fluid-filled loops of small bowel. This appears nonobstructive. Enteritis is a possibility. Normal appendix. This agrees with preliminary reading. The CT scanner at [facility] is accredited by the [place] [employer] [employer] and the scans are performed using protocols designed to limit radiation exposure to as low as reasonably achievable to attain images of sufficient resolution adequate for diagnostic evaluation.
== END 2016-08-14 16:43 | disposition home or self-care (01) ==
LOC: EMR 13:50
DX: K52.9 Noninfective gastroenteritis and colitis, unspecified (principal); R30.0 Dysuria; I10 Essential (primary) hypertension
CPT/HCPCS: 36415; 74177; 80053; 81003; 83690; 84484; 85025; 96360; 99284; Q9967

== ENCOUNTER 2017-02-10 13:57 | Emergency (ER) | payer MEDICAID ==
[~2017-02-10] VITALS: Ht 167.6 cm; Wt 69.4 kg
[~2017-02-10 13:57] MED LIST changes: +BENTYL10 MG ORAL; +KEFLEX500 MG ORAL; +UNOBMED
--- NOTE | 2017-02-10 15:05 | Emergency Room Report ---
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 work Not on any other AC Denies falls on abdomen/pelvis Distant prostate surgery Denies nausea/vomiting, fever/chills Allergies: Coded Allergies: No Known Allergies (Unverified , 11/16/13) Patient History Past Medical History: HTN, other - prostate surgery Past Surgical History: none Pertinent Family History: none Social History: Denies: smoking, alcohol use, drug use Immunizations: UTD Reviewed Nursing Documentation: PMH: Agreed, PSxH: Agreed Nursing Documentation-PMH Past Medical History: No History, Except For Hx Hypertension: Yes Hx Cancer: No Hx Gastrointestinal Problems: No Hx Neurological Problems: No Review of Systems All Other Systems: negative except mentioned in HPI Physical Exam Vital Signs Date Time Temp Pulse Resp B/P (MAP) Pulse Ox O2 Delivery O2 Flow Rate FiO2 02/10/17 14:04 98.1 66 14 144/69 97 Room Air Sp02 EP Interpretation: reviewed, normal General Appearance: normal inspection, well appearing, no apparent distress, alert, GCS 15, non-toxic Head: normocephalic, atraumatic Eyes: bilateral eye PERRL, bilateral eye EOMI ENT: normal ENT inspection, hearing grossly normal, normal voice Neck: normal inspection, full range of motion, supple, no bony tend Respiratory: normal inspection, lungs clear, normal breath sounds, no respiratory distress, no retraction, no wheezing Cardiovascular #1: regular rate, rhythm, no edema Gastrointestinal: normal inspection, normal bowel sounds, soft, no guarding, no hernia, other - +suprapubic ttp. No rebound, guarding Genitourinary: no CVA tenderness, other - gross hematuria in urine collecting bottle. Musculoskeletal: normal inspection, back normal, normal range of motion, Jeanine' s Sign negative Neurologic: normal inspection, alert, oriented x3, responsive, ventilating engineer III-XII nml as tested, motor strength/tone normal, speech normal Psychiatric: normal inspection, judgement/insight normal, mood/affect normal Skin: normal inspection, normal color, no rash Medical Decision Making Diagnostic Impression: Primary Impression: Gross hematuria Additional Impressions: Abdominal pain Qualified Codes: R10.9 - Unspecified abdominal pain UTI (urinary tract infection) Qualified Codes: N30.01 - Acute cystitis with hematuria ER Course H&H stable. INR, platelets normal. CT with bladder wall thickening, bilateral mild hydro Bladder full on CT After CT, bedside sono shows full bladder but patient emptied bladder, mostly urine, some blood clots Unlikely urinary obstruction given able to urinate without pain, empty bladder Bladder wall thickening and UA with UTI ASA might also be contributing to hematuria Rx Macrobid Advised to followup with Urology outpatient Last Vital Signs Date Time Temp Pulse Resp B/P (MAP) Pulse Ox O2 Delivery O2 Flow Rate FiO2 02/10/17 14:04 98.1 66 14 144/69 97 Room Air Status: improved Disposition: HOME, SELF-CARE Scripts Nitrofurantoin Monohyd/M-Cryst* (MACROBID 100 MG*) 100 Mg Capsule 100 MG ORAL EVERY 12 HOURS for 7 Days, #14 CAP Prov: DYLON ESPARZA M.D. 02/10/17 Referrals: NON PHYSICIAN (PCP) DYLON ESPARZA M.D. Feb 10, 2017 15:05
[2017-02-10 15:06] LABS: BASOPHILS % (AUTO) 1.6 % (0.0-2.0); EOSINOPHILS % (AUTO) 1.3 % (0.0-3.0); LYMPHOCYTES % (AUTO) 24.4 % (20.0-45.0); MEAN CORPUSCULAR HEMOGLOBIN 31.6 PG (27.0-31.0); MEAN CORPUSCULAR HGB CONC 33.4 G/DL (32.0-36.0); MEAN CORPUSCULAR VOLUME 95 FL (80-99); MEAN PLATELET VOLUME 7.6 FL (6.5-10.1); MONOCYTES % (AUTO) 8.3 % (1.0-10.0); NEUTROPHILS % (AUTO) 64.4 % (45.0-75.0); PLATELET COUNT 255 K/UL (150-450); RED BLOOD COUNT 4.55 M/UL (4.70-6.10); RED CELL DISTRIBUTION WIDTH 11.9 % (11.6-14.8); WHITE BLOOD COUNT 6.3 K/UL (4.8-10.8)
[2017-02-10 15:06] LABS: APPEARANCE,URINE TURBID; KETONES,URINE 1+ (NEGATIVE); LEUKOCYTE ESTERASE ,URINE 1+ (NEGATIVE); NITRITE,URINE NEGATIVE (NEGATIVE); PH,URINE 6.5 (4.5-8.0); PROTEIN,URINE 4+ (NEGATIVE); UROBILINOGEN,URINE NORMAL MG/DL (0.0-1.0)
[2017-02-10 15:19] LABS: ALANINE AMINOTRANSFERASE 13 U/L (3-41); ALBUMIN/GLOBULIN RATIO 1.3 (1.0-2.7); ANION GAP 11 (5-15); ASPARTATE AMINO TRANSFERASE 19 U/L (5-40); CALCIUM 9.6 mg/dL (8.6-10.2); CARBON DIOXIDE 26 mEQ/L (20-30); CHLORIDE 102 mEQ/L (98-107); CREATININE 1.2 mg/dL (0.7-1.2); GLOMERULAR FILTRATION RATE > 60 mL/min (>60); HEMOLYSIS 6; LIPASE 47 U/L (< 60); POTASSIUM 3.6 mEQ/L (3.4-4.9); SODIUM 139 mEQ/L (135-145); TOTAL PROTEIN 7.3 g/dL (6.6-8.7)
[2017-02-10 15:20] VITALS: BP 111/59
[2017-02-10 15:34] LABS: BACTERIA,URINE MODERATE /HPF; RBC,URINE TNTC /HPF (0 - 0)
--- NOTE | 2017-02-10 16:50 | Diagnostic Imaging Report ---
Indication: PAIN Technique: Precontrast spiral acquisitions obtained through the abdomen and pelvis. IV administration nonionic contrast. Multiphasic spiral acquisitions obtained through the abdomen and pelvis. Oral contrast, per urinary protocol Multiplanar reconstructions were generated. Total dose length product 3108 and 774 mGycm. CTDIvol(s) 16, 15, 16, 16, 15 mGy. Radiation dose was minimized using automated exposure control Comparison: 08/14/2016 Findings: Precontrast images demonstrate serpiginous areas of high attenuation within the bladder lumen posteriorly. These appear as filling defects on the delayed images with the bladder filled with contrast. This was not evident on the prior study. There is mild bladder wall thickening. There is bilateral distal hydroureter, with ureteral dilatation extending to ureterovesical junctions bilaterally. More proximally, the ureters are nondilated. The right renal collecting system is mildly hydronephrotic. The left renal collecting system is likewise mildly hydronephrotic. The left kidney is also somewhat atrophic. There is some perinephric fat stranding on the left. The kidneys and collecting systems are similar in appearance to the previous study. The distal ureteral dilatation is also evident on the previous study, although somewhat less striking. The prostate is enlarged, measuring 4.5 cm transverse by 3.7 cm AP by 4.3 cm craniocaudad. It indents the bladder floor. There is questionably a small TURP defect. The bladder floor is somewhat irregular. There is somewhat delayed opacification of the left renal collecting system and ureter as compared to the right. The right kidney again demonstrates a subcentimeter lower pole low-attenuation lesion which is too small to characterize. No retroperitoneal or pelvic mass or adenopathy demonstrated. The seminal vesicles appear unremarkable. There is no evidence of any perivesical pelvic fluid. No significant perivesical fat stranding demonstrated. No evidence of extravasation of contrast from the bladder is seen on the delayed images. On the delayed images, no significant collecting system filling defects are demonstrated. There is suggestion of a duplex left renal collecting system. The renal arteries are normal in caliber The liver, gallbladder, bile ducts, pancreas, spleen, adrenals are all unremarkable. No evidence of diverticulosis or diverticulitis. Normal appendix. Normal caliber small bowel. No free or loculated intraperitoneal air or fluid is evident. Distal esophagus, stomach, duodenum are unremarkable. The included lung bases are clear. The bones are unremarkable. Impression: Filling defects within the bladder. These may represent either blood clots, given stated clinical history hematuria, or exophytic tumor. Further evaluation with cystoscopy should be considered. Mild bladder wall thickening, also previously described, may be on the basis of chronic bladder outlet obstruction Delayed renal excretion, bilateral mild hydronephrosis and distal hydroureter, but no evidence of definite anatomic obstruction. Findings may be on the basis of chronic bladder obstruction as well Enlarged somewhat irregular prostate, with indentation of the floor of the bladder. Also evident on previous study of 08/14/2016. Equivocal TURP defect that correlate with surgical history Atrophic left kidney, also previously demonstrated, etiology uncertain. No evidence of unilateral renal artery stenosis demonstrated Asymmetric delay of left renal collecting system filling, significance uncertain, possibly reflecting chronic left renal disease. No significant extraurinary abnormality demonstrated. Note that previously described small bowel distention, fluid, and wall thickening are not evident currently. The CT scanner at [facility] is accredited by the [employer] and the scans are performed using protocols designed to limit radiati -- on exposure to as low as reasonably achievable to attain images of sufficient resolution adequate for diagnostic evaluation.
[2017-02-10] MEDS ORDERED: NITROFURANTOIN100 M2 ORAL (18:15)
[2017-02-10 18:29] VITALS: BP 116/60
== END 2017-02-10 18:33 | disposition home or self-care (01) ==
LOC: EMR 14:39
DX: R31.0 Gross hematuria (principal); R10.9 Unspecified abdominal pain; N39.0 Urinary tract infection, site not specified; I10 Essential (primary) hypertension; N40.0 Benign prostatic hyperplasia without lower urinary tract symptoms; N13.30 Unspecified hydronephrosis; N26.1 Atrophy of kidney (terminal)
CPT/HCPCS: 36415; 74178; 80053; 81003; 83690; 85025; 85610; 85730; 86850; 86900; 86901; 87086; 99284; Q9967

== ENCOUNTER 2017-03-10 17:55 | Emergency (ER) | payer MEDICAID ==
[~2017-03-10] VITALS: Ht 167.6 cm; Wt 70.3 kg
[~2017-03-10 17:55] MED LIST changes: +NITROFURANTOIN100 M2 ORAL
[2017-03-10 18:24] VITALS: BP 138/72
[2017-03-10 18:57] LABS: APPEARANCE,URINE CLEAR; KETONES,URINE NEGATIVE (NEGATIVE); LEUKOCYTE ESTERASE ,URINE NEGATIVE (NEGATIVE); NITRITE,URINE NEGATIVE (NEGATIVE); PH,URINE 5 (4.5-8.0); PROTEIN,URINE NEGATIVE (NEGATIVE); UROBILINOGEN,URINE NORMAL MG/DL (0.0-1.0)
[2017-03-10 19:37] LABS: BASOPHILS % (AUTO) 1.8 % (0.0-2.0); EOSINOPHILS % (AUTO) 3.2 % (0.0-3.0); LYMPHOCYTES % (AUTO) 30.5 % (20.0-45.0); MEAN CORPUSCULAR HEMOGLOBIN 31.5 PG (27.0-31.0); MEAN CORPUSCULAR HGB CONC 33.1 G/DL (32.0-36.0); MEAN CORPUSCULAR VOLUME 95 FL (80-99); MEAN PLATELET VOLUME 6.7 FL (6.5-10.1); MONOCYTES % (AUTO) 16.1 % (1.0-10.0); NEUTROPHILS % (AUTO) 48.5 % (45.0-75.0); PLATELET COUNT 188 K/UL (150-450); RED BLOOD COUNT 4.18 M/UL (4.70-6.10); RED CELL DISTRIBUTION WIDTH 12.2 % (11.6-14.8); WHITE BLOOD COUNT 3.8 K/UL (4.8-10.8)
[2017-03-10 19:38] LABS: TROPONIN I < 0.30 ng/mL (<=0.30)
[2017-03-10 19:41] LABS: ALANINE AMINOTRANSFERASE 19 U/L (3-41); ALBUMIN/GLOBULIN RATIO 1.3 (1.0-2.7); ANION GAP 10 (5-15); ASPARTATE AMINO TRANSFERASE 22 U/L (5-40); CALCIUM 8.8 mg/dL (8.6-10.2); CARBON DIOXIDE 27 mEQ/L (20-30); CHLORIDE 102 mEQ/L (98-107); CREATININE 0.9 mg/dL (0.7-1.2); GLOMERULAR FILTRATION RATE > 60 mL/min (>60); HEMOLYSIS 0; LIPASE 32 U/L (< 60); POTASSIUM 3.9 mEQ/L (3.4-4.9); SODIUM 139 mEQ/L (135-145); TOTAL PROTEIN 6.8 g/dL (6.6-8.7)
[2017-03-10] MEDS ORDERED: Morphine Sulfate 4mg/ml Inj IVP ONE (20:00)
[2017-03-10 20:20] LABS: INR 1.1 (0.9-1.1); PROTHROMBIN TIME 11.4 SEC (9.30-11.50)
[2017-03-10 20:54] VITALS: BP 132/74
[2017-03-10] MEDS ORDERED: ZOFRAN4 M3 ORAL (20:58)
[2017-03-10] MEDS ORDERED: TYLENOL EXTRA500 MG ORAL (20:58)
[2017-03-10] MEDS ORDERED: Metoclopramide 10mg/2ml Inj IVP ONE (21:15)
--- NOTE | 2017-03-10 21:34 | Emergency Room Report ---
History of Present Illness General Chief Complaint: Abdominal Pain Source: Patient (MARIANNA SHAFFER) Present Illness HPI The patient is a 71-year-old male with a history of hypertension presenting for abdominal pain, nausea, vomiting, and diarrhea for the past 3 days. he denies any known sick contacts recent travel. Abdominal pain described as a 9/10 dull ache to the entire abdomen. No known provoking relieving factors. He states that he has had 10 episodes of diarrhea yesterday. Described as light brown to yellow. He denies any other symptoms including fever, chills, melena, hematochezia, hematemesis, chest pain, shortness of breath (MARIANNA SHAFFER) Allergies: Coded Allergies: No Known Allergies (Unverified , 11/16/13) Patient History Past Medical History: see triage record Pertinent Family History: none Reviewed Nursing Documentation: PMH: Agreed, PSxH: Agreed (MARIANNA HSAFFER) Nursing Documentation-PMH Past Medical History: No History, Except For Hx Hypertension: Yes Hx Cancer: No Hx Gastrointestinal Problems: No Hx Neurological Problems: No (MARIANNA SHAFFER) Review of Systems All Other Systems: negative except mentioned in HPI (MARIANNA SHAFFER) Physical Exam Vital Signs Date Time Temp Pulse Resp B/P (MAP) Pulse Ox O2 Delivery O2 Flow Rate FiO2 03/10/17 18:05 97.5 58 14 145/71 99 Room Air Sp02 EP Interpretation: reviewed, normal General Appearance: no apparent distress, alert, GCS 15, non-toxic Head: normocephalic, atraumatic Eyes: bilateral eye normal inspection, bilateral eye PERRL ENT: hearing grossly normal, normal pharynx, no angioedema, normal voice Neck: full range of motion, supple/symm/no masses Respiratory: chest non-tender, lungs clear, normal breath sounds, speaking full sentences Gastrointestinal: normal bowel sounds, soft, non-distended, no guarding, no rebound, tenderness - diffuse Genitourinary: normal inspection, no CVA tenderness Musculoskeletal: back normal, gait/station normal, normal range of motion, non- tender, calf tenderness Neurologic: alert, oriented x3, responsive, motor strength/tone normal, sensory intact, speech normal Psychiatric: judgement/insight normal, memory normal, mood/affect normal, no suicidal/homicidal ideation Skin: normal color, no rash, warm/dry, well hydrated (MARIANNA SHAFFER) Medical Decision Making ND Attestation Dr. Ybarra is my supervising physician. Patient management was discussed with my supervising physician (MARIANNA SHAFFER) Medicare Attestation The history of Michael Ford has been reviewed and management options for him have been examined and discussed by Bubba Ybarra. I have personally examined and interviewed the patient. (BUBBA YBARRA M.D.) Diagnostic Impression: Primary Impression: Gastroenteritis ER Course The patient is a 71-year-old male with a history of hypertension presenting for abdominal pain, nausea, vomiting, and diarrhea Differential diagnoses considered include but not limited to gastritis, pancreatitis, appendicitis, Gastroenteritis, pancreatitis, among others PE: afebrile. NAD Abdomen is soft. Normal bowel sounds. There is diffuse tenderness to palpation. Nondistended No CVA tenderness All labs are unremarkable. CT scan is consistent with colitis. The patient is given morphine for pain which has significantly decreased. He has been given both Zofran and Reglan for nausea and states that he is feeling much better. He was discharged home with prescription for Zofran and Tylenol. ER precautions are given Laboratory Tests Test 03/10/17 18:35 03/10/17 18:54 03/10/17 19:58 Urine Color Pale yellow Urine Appearance Clear Urine pH 5 (4.5-8.0) Urine Specific [place] 1.005 (1.005-1.035) Urine Protein Negative (NEGATIVE) Urine Glucose (UA) Negative (NEGATIVE) Urine Ketones Negative (NEGATIVE) Urine Occult Blood Negative (NEGATIVE) Urine Nitrite Negative (NEGATIVE) Urine Bilirubin Negative (NEGATIVE) Urine Urobilinogen Normal MG/DL (0.0-1.0) Urine Leukocyte Esterase Negative (NEGATIVE) White Blood Count 3.8 K/UL (4.8-10.8) L Red Blood Count 4.18 M/UL (4.70-6.10) L Hemoglobin 13.2 G/DL (14.2-18.0) L Hematocrit 39.8 % (42.0-52.0) L Mean Corpuscular Volume 95 FL (80-99) Mean Corpuscular Hemoglobin 31.5 PG (27.0-31.0) H Mean Corpuscular Hemoglobin Concent 33.1 G/DL (32.0-36.0) Red Cell Distribution Width 12.2 % (11.6-14.8) Platelet Count 188 K/UL (150-450) Mean Platelet Volume 6.7 FL (6.5-10.1) Neutrophils (%) (Auto) 48.5 % (45.0-75.0) Lymphocytes (%) (Auto) 30.5 % (20.0-45.0) Monocytes (%) (Auto) 16.1 % (1.0-10.0) H Eosinophils (%) (Auto) 3.2 % (0.0-3.0) H Basophils (%) (Auto) 1.8 % (0.0-2.0) Sodium Level 139 mEQ/L (135-145) Potassium Level 3.9 mEQ/L (3.4-4.9) Chloride Level 102 mEQ/L (98-107) Carbon Dioxide Level 27 mEQ/L (20-30) Anion Gap 10 (5-15) Blood Urea Nitrogen 9 mg/dL (7-23) Creatinine 0.9 mg/dL (0.7-1.2) Estimate Glomerular Filtration Rate > 60 mL/min (>60) Glucose Level 96 mg/dL (74-106) Calcium Level 8.8 mg/dL (8.6-10.2) Total Bilirubin 0.4 mg/dL (0.0-1.2) Aspartate Amino Transferase (AST) 22 U/L (5-40) Alanine Aminotransferase (ALT) 19 U/L (3-41) Alkaline Phosphatase 87 U/L (40-129) Troponin I < 0.30 ng/mL (<=0.30) Total Protein 6.8 g/dL (6.6-8.7) Albumin 3.9 g/dL (3.5-5.2) Globulin 2.9 g/dL Albumin/Globulin Ratio 1.3 (1.0-2.7) Lipase 32 U/L (< 60) Prothrombin Time 11.4 SEC (9.30-11.50) Prothrombin Time INR 1.1 (0.9-1.1) PTT 30 SEC (23-33) Lab Results Impression unremarkable (MARIANNA SHAFFERSy) CT/MRI/US Diagnostic Results CT/MRI/US Diagnostic Results : Imaging Test Ordered: CT Abd/Pelvis Impression chronic hydronephrosis. Colitis (MARIANNA SHAFFER) Last Vital Signs Date Time Temp Pulse Resp B/P (MAP) Pulse Ox O2 Delivery O2 Flow Rate FiO2 03/10/17 18:24 97.8 82 16 138/72 99 Room Air Status: improved (MARIANNA SHAFFER) Disposition: HOME, SELF-CARE Condition: Improved Scripts Acetaminophen* (TYLENOL EXTRA STRENGTH*) 500 Mg Tablet 500 MG ORAL Q8H Y for Prn Headache/Temp > 101, #30 TAB 0 Refills Prov: MARIANNA SHAFFER 03/10/17 Ondansetron* (ZOFRAN*) 4 Mg Tablet 4 MG ORAL Q6H Y for Nausea & Vomiting, #20 TAB Prov: MARIANNA SHAFFER 03/10/17 Referrals: NON PHYSICIAN (PCP) Patient Instructions: Viral Gastroenteritis, Adult, Abdominal Pain, Adult Additional Instructions: I discussed my findings with the patient. All questions and concerns have been answered. Treatment and medication compliance have been addressed. I advised the patient that they need to follow up with PMD in 3-5 days. Return to ED if symptoms worsen, new symptoms arise, or if needed for any reason. Patient verbalized understanding of discharge instructions. MARIANNA SHAFFER Mar 10, 2017 21:34 BUBBA YBARRA M.D. Mar 22, 2017 06:49
[2017-03-10 23:00] VITALS: BP 132/74
--- NOTE | 2017-03-11 08:43 | Diagnostic Imaging Report ---
Indication: Abdominal pain Technique: Continuous helical transaxial imaging of the abdomen and pelvis was obtained from the lung bases to the pubic symphysis during intravenous contrast administration. Coronal 2-D reformats were also obtained. Study obtained in a Siemens sensation [address] Total Dose length Product (DLP): [address] Dose Index Volume (CTDIvol): 15.47, 0.15 mGy Comparison: 08/14/16 Findings: Mild bilateral hydronephrosis and hydroureter demonstrated. This is a chronic finding and has been seen on multiple prior studies. Is there is no obstructing stone as is the case on all prior occasions. There is thickening of the urinary bladder wall and slight dilatation of the bladder noted. The left kidney is atrophic which is unchanged. Small bowel loops are mildly distended and filled with fluid. Consider enteritis. A small right inguinal hernia containing fat demonstrated. No free fluid or free air demonstrated. Moderate arterial calcifications are present. Mild posterior basilar atelectasis is present. The liver and spleen, pancreas, gallbladder appear unremarkable. Impression: Possible enteritis. Please correlate clinically Chronic bilateral hydronephrosis unchanged. This may be on the basis of functional obstruction. No stone or mass identified. The finding is unchanged. Atherosclerotic disease Atrophy of the left kidney. Mild posterior basilar atelectasis. Right renal cyst. The CT scanner at [facility] is accredited by the [employer] and the scans are performed using dose optimization techniques as appropriate to a performed exam including Automatic Exposure control.
== END 2017-03-10 23:00 | disposition home or self-care (01) ==
LOC: EMR 18:30
DX: K52.9 Noninfective gastroenteritis and colitis, unspecified (principal); I10 Essential (primary) hypertension; N26.1 Atrophy of kidney (terminal); N13.30 Unspecified hydronephrosis; N28.1 Cyst of kidney, acquired
CPT/HCPCS: 36415; 74177; 80053; 81003; 83690; 84484; 85025; 85610; 85730; 96361; 96372; 96374; 96375; 99284; J2270; J2405; J2765; Q9967